=== PATIENT | male | born 1960 | race Caucasian/White ===

== ENCOUNTER → 2020-02-16 11:29 | Outpatient (CLI) | payer OTHER, SELFPAY ==
--- NOTE | ~2020-02-16 | XR_ITS ---
EXAMINATION: XR chest 2V DATE: 02/16/2020 12:00 INDICATION: Abnormal weight loss TECHNIQUE: PA and lateral views of the chest are obtained. COMPARISON: 11/22/2017 FINDINGS: The lungs are free of acute opacities. There is no pleural effusion or pneumothorax. The he art size is normal. Calcified left hilar lymph nodes are consistent with old granulomatous disease. T here are bridging osteophytes at multiple levels in the spine, consistent with diffuse idiopathic ske letal hyperostosis (DISH). IMPRESSION: 1. No acute cardiopulmonary abnormality. Reviewed, dictated and finalized at location B.
== END ==
PROVIDERS: PCP Family Medicine; Visit Provider Physician Assistant
DX: R63.4 Abnormal weight loss (principal)
CPT/HCPCS: 71046

== ENCOUNTER 2020-05-17 08:22 | Outpatient (CLI) | payer OTHER, SELFPAY ==
[2020-05-17 18:02] LABS: SARS-CoV-2 RNA PCR Negative
== END 2020-05-17 08:23 | disposition home or self-care (01) ==
LOC: ANHCOVIDDT 08:22
PROVIDERS: PCP Family Medicine; Visit Provider Internal Medicine Gastroenterology
DX: Z01.812 Encounter for preprocedural laboratory examination (principal); Z20.828 Contact with and (suspected) exposure to other viral communicable diseases
CPT/HCPCS: 87635; C9803; U0003

== ENCOUNTER 2020-05-20 01:19 | Day surgery (SDC) | payer OTHER, SELFPAY ==
[2020-05-09 15:01] VITALS: BMI 26.8
[2020-05-20 11:13] VITALS: BP 122/76; PULSE 79; RESP 14; TEMP 36.3; O2SAT 100
[2020-05-20] MEDS: LACTATED RINGERS 1,000 ML 150 ML IV CONT (11:22)
--- NOTE | 2020-05-20 11:30 | PM.IMHP ---
H&P: [facility] History of Present Illness Date/Time: 05/20/20 11:30 Chief complaint: neoplasm screening Narrative: Reason for visit is colonoscopy. This very pleasant gentleman seen in consultation request of the primary physician. Impression: Screening and surveillance colonoscopy. The patient has a history of hyperplastic colon polyps. Weight loss. This may be secondary to difficulty with his recent change in his dentures. Diabetes mellitus. Neuropathy. CAD status post stent placement. HTN. HLD. Anxiety. Recommendation: Colonoscopy. History: This very pleasant gentleman is here for screening and surveillance colonoscopy. He has history of hyperplastic colon polyps. He has had a marked weight loss of approximately 27 lb since July. He states that he has gotten some new dentures which are causing him some difficulty. Does have occasional constipation. He denies any gross hematochezia, melena acholic stools. Patient is here for colonoscopy. Physical examination: General: very pleasant patient in no acute distress. HEENT: Head was normocephalic sclerae is clear mouth without masses neck was supple. Heart: Rate rhythm regular without S3 or S4. Lungs: CTA. Abdomen: Soft with no guarding or rigidity. Bowel sounds were active. Neurologic: Cranial nerves 2 through 12 intact. No focal defects. No clonus. Musculoskeletal system: Revealed no joint tenderness or swelling no muscle atrophy. Extremities: Reveal no significant edema. Skin: Warm and dry with normal turgor. Mental status: intact. Patient is alert and oriented. Review of Systems Review of Systems: All systems reviewed & are unremarkable except as noted in HPI and below PMFSH Past Medical History Medical History (Updated 02/16/20 @ 15:09 by Maximiliano Calvo PA-C) Normal cardiac stress test (~2008) Family History Family History Father Acute myocardial infarction, Onset Age: 74 Malignant neoplasm of prostate, Onset Age: 74 Other Carcinoma of colon Social History Social History Years smoked: 10 Smoking status: Former smoker Tobacco type: cigarettes Alcohol intake: former Substance use: never Substance use type: does not use Spiritual care concerns: No Meds Home Medications and Allergies Home Medications Medication Instructions Recorded Confirmed Type atorvastatin 40 mg tablet 40 mg PO DAILY #90 tablet 06/05/19 05/09/20 Rx lisinopril 10 mg tablet 10 mg PO DAILY #90 tablet 08/10/19 05/09/20 Rx clopidogrel 75 mg tablet 75 mg PO DAILY 08/24/19 05/09/20 History metoprolol succinate 50 mg 50 mg PO DAILY 08/24/19 05/09/20 History tablet,extended release 24 hr metformin 1,000 mg tablet 1,000 mg PO BID #180 tablet 11/10/19 05/09/20 Rx empagliflozin 25 mg tablet 25 mg PO DAILY #90 tablet 12/19/19 05/09/20 Rx fluoxetine 20 mg capsule 20 mg PO DAILY #90 cap 01/15/20 05/09/20 Rx semaglutide 0.5 mg SUB-Q WEEKLY 90 Days #5.2 ml 03/26/20 05/09/20 Rx aspirin [Adult Low Dose Aspirin] 81 mg PO DAILY 05/09/20 05/09/20 History fluorouracil [Efudex] 1 applic TOPICAL BID PRN 05/09/20 05/09/20 History ginkgo biloba 60 mg PO DAILY 05/09/20 05/09/20 History melatonin 10 mg PO HS PRN 05/09/20 05/09/20 History csozysxluzsq-jnp-ooik-FA-vit K 1 tablet PO DAILY 05/09/20 05/09/20 History [Adults Multivitamin] vitamin B complex [Super B Complex] 1 cap PO DAILY 05/09/20 05/09/20 History Allergies Allergy/AdvReac Type Severity Reaction Status Date / Time naproxen Allergy Intermediate RASH Verified 05/20/20 11:11 Vital Signs Vital Signs - 24 hr 05/20/20 11:13 Temperature 36.3 C L Pulse Rate 79 Respiratory Rate 14 Blood Pressure 122/76 Pulse Oximetry 100
--- NOTE | 2020-05-20 11:37 | WPDANESEPPF ---
Anes - Initial Pre Proc Eval Procedure: Operation Date: 05/20/20 12:30 Proposed Procedures p Screening Colonoscopy - Pantera Richardson DO Date/Time: 05/20/20 11:37 Surgeon: Pantera Richardson DO Pre Op Diagnosis: neoplasm screening Patient Data Age: 60 Gender: M Height: 1.73 m Weight: 74.7 kg Last Vital Signs Temp 36.3 C L 05/20/20 11:13 Pulse 79 05/20/20 11:13 Resp 14 05/20/20 11:13 BP 122/76 05/20/20 11:13 Pulse Ox 100 05/20/20 11:13 Allergies Allergy/AdvReac Type Severity Reaction Status Date / Time naproxen Allergy Intermediate RASH Verified 05/20/20 11:11 Home Medications Medication Instructions Recorded Confirmed Type atorvastatin 40 mg tablet 40 mg PO DAILY #90 tablet 06/05/19 05/09/20 Rx lisinopril 10 mg tablet 10 mg PO DAILY #90 tablet 08/10/19 05/09/20 Rx clopidogrel 75 mg tablet 75 mg PO DAILY 08/24/19 05/09/20 History metoprolol succinate 50 mg 50 mg PO DAILY 08/24/19 05/09/20 History tablet,extended release 24 hr metformin 1,000 mg tablet 1,000 mg PO BID #180 tablet 11/10/19 05/09/20 Rx empagliflozin 25 mg tablet 25 mg PO DAILY #90 tablet 12/19/19 05/09/20 Rx fluoxetine 20 mg capsule 20 mg PO DAILY #90 cap 01/15/20 05/09/20 Rx semaglutide 0.5 mg SUB-Q WEEKLY 90 Days #5.2 ml 03/26/20 05/09/20 Rx aspirin [Adult Low Dose Aspirin] 81 mg PO DAILY 05/09/20 05/09/20 History fluorouracil [Efudex] 1 applic TOPICAL BID PRN 05/09/20 05/09/20 History ginkgo biloba 60 mg PO DAILY 05/09/20 05/09/20 History melatonin 10 mg PO HS PRN 05/09/20 05/09/20 History bfleevtxdpdv-zqt-nnzj-FA-vit K 1 tablet PO DAILY 05/09/20 05/09/20 History [Adults Multivitamin] vitamin B complex [Super B Complex] 1 cap PO DAILY 05/09/20 05/09/20 History Patient hx anesthesia problems: none Family hx anesthesia problems: none PMFSH Past Medical History Medical History (Updated 05/20/20 @ 11:39 by Shaji Low MD) Anxiety CAD (coronary artery disease) Depression Diabetes type 2, uncontrolled Essential (primary) hypertension Normal cardiac stress test (~2008) Obstructive sleep apnea cpap Surgical History Surgical History (Updated 05/20/20 @ 11:39 by Shaji Low MD) History of coronary artery stent placement 11/2017 Family History Family History Father Acute myocardial infarction, Onset Age: 74 Malignant neoplasm of prostate, Onset Age: 74 Other Carcinoma of colon Social History Social History Years smoked: 10 Smoking status: Former smoker Tobacco type: cigarettes Alcohol intake: former Substance use: never Substance use type: does not use Spiritual care concerns: No Anes - Eval Final PreProcedure Day of Procedure 05/20/20 11:37 Patient weight: normal Heart: regular rate and rhythm Lungs: clear to auscultation and normal air movement Airway: Mallampati scale class II Neurological: alert and oriented Last oral intake: >/= 8 hours ASA classification: III Emergent: no Anesthetic plan: proceed Anesthesia type and monitoring: general GIVS Informed Consent: The patient's anesthetic plan and its attendant risks and benefits were discussed with the patient/family/POA. Questions were solicited and answers provided to the satisfaction of the patient/family/POA.
[2020-05-20 11:44] LABS: Glucose Point of Care 144 (65-105)
[2020-05-20 12:47] VITALS: BP 91/60; PULSE 76; RESP 15; O2SAT 96
[2020-05-20 12:57] VITALS: BP 101/80; PULSE 79; RESP 32; O2SAT 100
[2020-05-20 13:07] VITALS: BP 100/59; PULSE 74; RESP 22; O2SAT 100
== END 2020-05-20 13:24 | disposition home or self-care (01) ==
PROVIDERS: PCP Family Medicine; Visit Provider Internal Medicine Gastroenterology
PROC: 0DJD8ZZ Inspection of Lower Intestinal Tract, Via Natural or Artificial Opening Endoscopic (ICD-10-PCS; CPT 45378; principal; 2020-05-20 12:30)
DX: Z12.11 Encounter for screening for malignant neoplasm of colon (principal); D12.2 Benign neoplasm of ascending colon; D12.3 Benign neoplasm of transverse colon; K64.8 Other hemorrhoids; R63.4 Abnormal weight loss; E11.9 Type 2 diabetes mellitus without complications; G62.9 Polyneuropathy, unspecified; I25.10 Atherosclerotic heart disease of native coronary artery without angina pectoris; I10 Essential (primary) hypertension; E78.5 Hyperlipidemia, unspecified; F41.9 Anxiety disorder, unspecified; G47.33 Obstructive sleep apnea (adult) (pediatric); Z99.89 Dependence on other enabling machines and devices; Z86.010 Personal history of colon polyps; Z87.891 Personal history of nicotine dependence; Z95.5 Presence of coronary angioplasty implant and graft; Z79.4 Long term (current) use of insulin
CPT/HCPCS: 45385; 45380; 88305; J2704; J7120

== ENCOUNTER 2020-05-28 07:52 | Outpatient (CLI) | payer OTHER, SELFPAY ==
--- NOTE | ~2020-05-28 | CT_ITS ---
EXAMINATION:CT chest wo con DATE: 05/28/2020 08:49 INDICATION: Abnormal weight loss. TECHNIQUE: Computed tomography (CT) of the chest was performed without intravenous contrast. Automate d exposure control and iterative reconstruction technique were employed. The dose-length product (DLP ) was 258.73 mGy-cm. COMPARISON: None. FINDINGS: There is mild scarring in paraspinal right lower lobe. There are mild peripheral groundglas s opacities and airspace opacities in basilar right lower lobe. There are mild groundglass opacities in peripheral left lower lobe. A calcified left lung nodule and calcified left hilar lymph nodes are consistent with old granulomatous disease. No pleural effusion. There are size is normal. There are c oronary artery calcifications. No pericardial effusion. Calcifications in the spleen are consistent w ith old granulomatous disease. There are bridging endplate osteophytes at multiple levels in the spin e, consistent with diffuse idiopathic skeletal hyperostosis (DISH). IMPRESSION: 1. Mild airspace and groundglass opacities in right lower lobe and mild groundglass opacities in left lower lobe, likely inflammation or infection (including COVID-19 pneumonia). Reviewed, dictated and finalized at location B. STANT HVAC MECHANIC IMPRESSION: 1. Mild airspace and groundglass opacities in right lower lobe and mild groundg lass opacities in left lower lobe, likely inflammation or infection (including COVID-19 pneumonia).
--- NOTE | ~2020-05-28 | CT_ITS ---
EXAMINATION: CT abdomen pelvis w con EXAM DATE: 05/28/2020 08:49 INDICATION: Abdominal distention, weight loss. TECHNIQUE: Spiral CT of the abdomen and pelvis was performed following intravenous injection of 100 m L Omnipaque 350. Axial, coronal and sagittal images were reviewed. The dose-length product (DLP) fo r this examination was 258.73 mGy-cm. The exposure was tailored according to patient size (auto mA e xposure control), and iterative reconstruction (ASIR) was used as additional dose reduction technique . There is no prior study for comparison. FINDINGS: The liver, spleen, adrenal glands and pancreas are unremarkable. Gallbladder is unremarkab le. No biliary obstruction. Portal and splenic veins are patent. There is a 1.7 cm right renal cyst . Kidneys enhance symmetrically. There is no hydronephrosis. The prostate is unremarkable. The bl adder is unremarkable. There is no retroperitoneal or pelvic lymphadenopathy. There is mild scatte red arteriosclerotic disease. The appendix is normal. The stomach and small bowel are unremarkable. There is moderate amount of c olonic stool. No free intraperitoneal gas. The heart is normal in size. There are no pericardial or pleural effusions. There are 2 small regions of ill-defined right lower lobe groundglass airspace disease, largest measu ring about 2 cm. There are 2 subcentimeter left lower lobe groundglass opacities. These are nonspecif ic, but probably pneumonitis, potentially from SARS-CoV-2. There are no osteoblastic or osteolytic le sions identified. Chronic L5 spondylolysis with grade 1 anterolisthesis L5 on S1. Grade 1 retrolisthe sis L4 on L5. IMPRESSION: 1. Several basilar groundglass opacities, possible COVID-19. Correlate with CT chest results. 2. No acute intra-abdominal findings. Reviewed, dictated and finalized at location A. ULTING SERVICES PROJECT MANAGER
== END 2020-05-28 07:53 | disposition home or self-care (01) ==
PROVIDERS: PCP Family Medicine; Referring Provider Internal Medicine Gastroenterology; Visit Provider Family Medicine
DX: R63.4 Abnormal weight loss (principal); R91.8 Other nonspecific abnormal finding of lung field
CPT/HCPCS: 71250; 74177; Q9967

== ENCOUNTER 2020-05-30 09:39 | Outpatient (NON) | payer OTHER, SELFPAY ==
[2020-05-31 00:45] LABS: SARS-CoV-2 RNA PCR Positive
== END 2020-05-30 09:40 ==
LOC: ANHCOVIDDT 09:40
PROVIDERS: PCP Family Medicine; Visit Provider Family Medicine
DX: U07.1 COVID-19 (principal)
CPT/HCPCS: 87635; C9803; U0003

== ENCOUNTER → 2020-07-08 11:39 | Outpatient (CLI) | payer OTHER, SELFPAY ==
--- NOTE | ~2020-07-08 | XR_ITS ---
EXAMINATION: XR lumbar spine 2-3V EXAM DATE: 07/08/2020 12:08 INDICATION: M54.9 - Dorsalgia, unspecified. TECHNIQUE: Lumber spine frontal, lateral, lateral L5-S1 projections for interpretation. Comparison is made to prior examination from 12/19/2018. FINDINGS: There is moderate disc disease at L5-S1 with about 7 mm anterolisthesis, suspicion of bila teral L5 spondylolysis. Mild to moderate disc disease at the other lumbar levels. There is 4 mm retro listhesis L4 on L5, 3 mm retrolisthesis L3 on L4. Mild to moderate lumbar facet arthropathy. Small en dplate osteophytes. Paraspinal soft tissue is unremarkable. Sacrum, sacroiliac joints, sacral arcuate lines are intact. IMPRESSION: 1. Grade 2 anterolisthesis L5 on S1, with probable bilateral L5 spondylolysis. 2. Moderate L5-S1 disc disease. 3. Lesser spondylosis other levels. Reviewed, dictated and finalized at location B. 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
--- NOTE | ~2020-07-08 | XR_ITS ---
EXAMINATION: XR thoracic spine 3V EXAM DATE: 07/08/2020 12:08 INDICATION: Mid and low back pain.. TECHNIQUE: Frontal and lateral projections of the thoracic spine as well as lateral swimmers projecti on of the upper thoracic spine for interpretation. There is no prior study for comparison. FINDINGS: Moderate-sized bridging endplate osteophytes throughout the thoracic spine, diffuse idiopat hic skeletal hyperostosis. Mild mid and lower thoracic disc disease. Left hilar granulomata. Mild tho racic facet arthropathy. IMPRESSION: 1. Thoracic diffuse idiopathic skeletal hyperostosis. 2. Mild thoracic spondylosis. Reviewed, dictated and finalized at location B. AIGN ASSISTANT
== END ==
PROVIDERS: PCP Family Medicine; Visit Provider Physician Assistant
DX: M47.894 Other spondylosis, thoracic region (principal); M51.37 Other intervertebral disc degeneration, lumbosacral region; M47.896 Other spondylosis, lumbar region
CPT/HCPCS: 72072; 72100

== ENCOUNTER 2021-11-06 16:37 | Outpatient (CLI) | payer OTHER, SELFPAY ==
[2021-11-06 17:17] LABS: Anion Gap 7 mmol/L (8-16); Blood Urea Nitrogen 16 mg/dL (9-20); Calcium 8.5 mg/dL (8.4-10.2); Carbon Dioxide 29 mmol/L (22-30); Chloride 101 mmol/L (98-107); Estimated Glomerular Filt Rate > 60; Glucose 262 mg/dL (65-110); Potassium 3.9 mmol/L (3.4-5.0); Sodium 137 mmol/L (137-145)
== END 2021-11-06 16:38 | disposition home or self-care (01) ==
LOC: ANHLAB 16:39
PROVIDERS: PCP Family Medicine; Visit Provider Physician Assistant
DX: E87.5 Hyperkalemia (principal)
CPT/HCPCS: 36415; 80048

== ENCOUNTER → 2022-11-12 15:23 | Outpatient (CLI) | payer OTHER, SELFPAY ==
--- NOTE | ~2022-11-12 | XR_ITS ---
EXAMINATION: XR shoulder RT min 2V DATE: 11/12/2022 15:39 INDICATION: Right shoulder pain. TECHNIQUE: 4 views of right shoulder were obtained. COMPARISON: None. FINDINGS: Bone alignment is normal. No fracture. There is mild osteoarthritis of glenohumeral joint a nd acromioclavicular joint. IMPRESSION: 1. Mild polyarticular osteoarthritis. Reviewed, dictated and finalized at location E.
== END ==
PROVIDERS: PCP Family Medicine; Visit Provider Family Medicine
DX: E11.42 Type 2 diabetes mellitus with diabetic polyneuropathy (principal); M19.011 Primary osteoarthritis, right shoulder
CPT/HCPCS: 73030

== ENCOUNTER 2023-01-05 10:05 | Outpatient (CLI) | payer OTHER, SELFPAY ==
--- NOTE | ~2023-01-05 | MR_ITS ---
MRI of the right shoulder Technique: Axial proton-density fat-sat images, coronal proton density fat-sat and T2 fat-sat images, and sagittal T1-weighted and T2 fat-sat images were acquired. Clinical History: Pain Findings: There is moderate to advanced AC joint degenerative change. Coracoclavicular, coracoacromia l, and coracohumeral ligaments are intact. There is focal high-grade interstitial tearing at the distal, anterior supraspinatus tendon insertion , involving approximately 80% of the total tendon thickness. Area of tearing measures approximately 0 .9 x 0.8 cm in extent. Infraspinatus tendon is intact, without partial or full-thickness tear. Subsca pularis tendon is intact, with mild tendinosis. Tendon of the long head of the biceps is intact. No labral tear identified. Inferior glenohumeral ligament is intact. There are enthesopathic changes at the humeral head at the rotator cuff insertion. No degenerative change at the glenohumeral joint. No significant joint effusi on. There is mild fluid distention of the subacromial/subdeltoid bursa. Probable loose body present i n the subscapularis recess of the joint, measuring 1.0 x 0.4 cm (series 6 image 16, series 4 image 5) . IMPRESSION: High-grade interstitial tear of the distal, anterior supraspinatus tendon, as detailed above. Probable 1.0 x 0.4 cm loose body in the subscapularis recess of the joint. Mild subacromial/subdeltoid bursitis. Reviewed, dictated and finalized at location . IMPRESSION: High-grade interstitial tear of the distal, anterior supraspinatus tendon, as d etailed above. Probable 1.0 x 0.4 cm loose body in the subscapularis recess of the joint. Mild subacromial/subdeltoid bursitis.
== END 2023-01-05 10:06 ==
LOC: GOSHIMG 10:06
PROVIDERS: PCP Family Medicine; Visit Provider Family Medicine
DX: E11.618 Type 2 diabetes mellitus with other diabetic arthropathy (principal); M75.51 Bursitis of right shoulder; M75.121 Complete rotator cuff tear or rupture of right shoulder, not specified as traumatic
CPT/HCPCS: 73221

== ENCOUNTER 2023-05-07 12:20 | Emergency (ER) | payer MEDICARE, SELFPAY ==
--- NOTE | ~2023-05-07 | XR_ITS ---
XR abdomen/kub 1V DATE: 05/07/2023 14:11 INDICATION: Hematuria. Fever. TECHNIQUE: 2 supine AP views COMPARISON: None FINDINGS: The psoas shadows are intact. No visceromegaly or significant abnormal calcification is det ected. No evidence of bowel obstruction. There is degenerative spurring of the thoracic and lumbar spine. IMPRESSION: Nonspecific abdomen Reviewed, dictated and finalized at Location A. Reviewed, dictated and finalized at location B. IMPRESSION: Nonspecific abdomen
[2023-05-07 13:37] LABS: Glucose Point of Care 150 mg/dl (65-105)
[2023-05-07 13:57] VITALS: BP 128/68; PULSE 89; RESP 16; TEMP 36.3; O2SAT 99
--- NOTE | 2023-05-07 13:59 | ED.GENADULT ---
HPI - General Adult General Chief complaint: Upper Respiratory Infection Stated complaint: sore throat,fever,body aches,painful urination Time Seen by Provider: 05/07/23 13:47 Source: patient, family () and RN notes reviewed Mode of arrival: ambulatory Limitations: no limitations History of Present Illness HPI narrative: Patient presents today complaining of a 1.5 day history of dysuria, body aches, low back pain, fever up to 101.4, abdominal pain, urinary frequency with less urine output, and nausea. He has been taking Tylenol with some relief of symptoms. Related Data Home Medications Medication Instructions Recorded Confirmed aspirin 81 mg tablet 81 mg PO DAILY 05/09/20 04/22/23 fluorouracil 5 % topical cream 1 applic topical BID PRN Skin 05/09/20 04/22/23 (Efudex) Irritation multivit with minerals-iron 18 1 tablet PO DAILY 05/09/20 04/22/23 mg-folic ac 400 mcg-vit K 25 mcg tablet (Adults Multivitamin) vitamin B complex 1 cap PO DAILY 05/09/20 04/22/23 gabapentin 300 mg capsule 600 mg PO QHS 11/10/22 04/22/23 Allergies Allergy/AdvReac Type Severity Reaction Status Date / Time naproxen Allergy Intermediate RASH Verified 05/07/23 12:53 Review of Systems Review of Systems: CONSTITUTIONAL: + body aches, fever EYES: Denies visual changes, redness, or discharge. ENT: Denies rhinorrhea, congestion, sore throat, or otalgia. CARDIOVASCULAR: Denies chest pain, palpitations, or edema. RESPIRATORY: Denies cough or dyspnea. GASTROINTESTINAL: Denies vomiting, or diarrhea.+ abdominal pain, nausea GENITOURINARY: + frequency, dysuria, decreased urine output SKIN: Denies rash, itching, or wounds. MUSCULOSKELETAL: Denies joint pain, or myalgia.+ low back pain NEUROLOGIC: Denies headache, numbness, tingling, or weakness. PSYCH: Denies depression or anxiety. [facility] Past Medical History Medical History Abnormal weight loss Actinic keratosis Anxiety Back pain CAD (coronary artery disease) Depression Diabetes type 2, uncontrolled Essential (primary) hypertension Hyperkalemia Normal cardiac stress test (~2008) Obstructive sleep apnea cpap Skin lesion of face Surgical History Surgical History History of coronary artery stent placement 11/2017 Family History Family History Father Acute myocardial infarction, Onset Age: 74 Malignant neoplasm of prostate, Onset Age: 74 Other Carcinoma of colon Social History Social History Smoking packs per day: 0.5 Smoking cigarettes per day: 10.0 Years smoked: 10 Smoking pack-years: 5.00 Smoking status: Current every day smoker Tobacco type: cigarettes Alcohol intake: former Substance use: never Substance use type: does not use Lack of Transportation: No Lack of Food: Never True Current Housing: I Have Housing Concerned About Future Housing: No Difficulty Paying Gas/Electric Bills: No Difficulty Paying for Meds: No Currently Unemployed: No Education: High School Diploma/GED Difficulty w/ Childcare or Family Care: No Spiritual care concerns: No Comments At time of signature, I have reviewed and agree with nursing past medical, surgical, social and family history unless otherwise noted. Please see nursing chart for further information. There is no relevant family history pertinent to the presenting complaint Exam Narrative: GENERAL: Mildly ill-appearing, well-nourished, and in no acute distress. HEAD: Normocephalic, atraumatic. EYES: EOMI. No redness or drainage. Conjunctivae normal. ENT: Mucous membranes pink and moist. Nares clear. No rhinorrhea. TMs normal bilaterally. Throat normal. Uvula midline. NECK: Normal AROM. Supple. No lymphadenopathy. CHEST: No r
== END 2023-05-07 15:02 | disposition left against medical advice (07) ==
PROVIDERS: Emergency Provider Nurse Practitioner; PCP Family Medicine
DX: R30.0 Dysuria (principal); R31.9 Hematuria, unspecified; F17.210 Nicotine dependence, cigarettes, uncomplicated; I25.10 Atherosclerotic heart disease of native coronary artery without angina pectoris; E11.9 Type 2 diabetes mellitus without complications; I10 Essential (primary) hypertension; G47.33 Obstructive sleep apnea (adult) (pediatric); Z95.5 Presence of coronary angioplasty implant and graft
CPT/HCPCS: 74018; 81003; 82948; 99213; G0463

== ENCOUNTER 2023-05-21 11:27 | Outpatient (CLI) | payer MEDICARE, SELFPAY ==
[2023-05-21 16:21] LABS: Kit Draw Collected
== END 2023-05-21 11:28 | disposition home or self-care (01) ==
PROVIDERS: PCP Family Medicine; Visit Provider Family Medicine
DX: E11.42 Type 2 diabetes mellitus with diabetic polyneuropathy (principal)
CPT/HCPCS: 36415

== ENCOUNTER 2023-10-14 10:26 | Outpatient (CLI) | payer MEDICARE, SELFPAY ==
--- NOTE | ~2023-10-14 | CT_ITS ---
EXAMINATION: CT lung screening DATE: 10/14/2023 10:38 INDICATION: Nicotine dependence TECHNIQUE: Computed tomography (CT) of the head was performed without intravenous contrast. The dose- length product was 188.53 mGy-cm. Automated exposure control and iterative reconstruction technique w ere employed. COMPARISON: CT dated 05/28/2020 FINDINGS: No significant pleural or pericardial effusion. There is calcified left hilar lymph nodes, consistent with chronic granulomatous disease. There are calcified granulomas of the left lower lobe and spleen. No endobronchial lesions. There is a 2 mm right middle lobe nodule. Moderate thoracic spo ndylosis. No acute osseous abnormality. IMPRESSION: 1. Lung-RADS category 2: Benign appearance or behavior. Continue annual screening with noncontrast lo w-dose chest CT in 12 months. Reviewed, dictated and finalized at location L. IMPRESSION: 1. Lung-RADS category 2: Benign appearance or behavior. Continue annual screeni ng with noncontrast low-dose chest CT in 12 months.
== END 2023-10-14 10:27 ==
LOC: MICIMG 10:27
PROVIDERS: PCP Family Medicine; Visit Provider Nurse Practitioner Family
DX: Z12.2 Encounter for screening for malignant neoplasm of respiratory organs (principal); F17.210 Nicotine dependence, cigarettes, uncomplicated
CPT/HCPCS: 71271

== ENCOUNTER 2024-06-13 11:14 | Emergency (ER) | payer MEDICARE, SELFPAY ==
[2024-06-13] VITALS (22 sets, daily range): BP systolic 103–147; BP diastolic 67–86; PULSE 68–84; RESP 16–18; TEMP 36.4–37.1; O2SAT 95–100
--- NOTE | ~2024-06-13 | CT_ITS ---
EXAMINATION: CT abdomen pelvis w con DATE: 06/13/2024 14:10 INDICATION: Localized abdominal pain TECHNIQUE: Computed tomography (CT) of the abdomen and pelvis was performed with 100 mL Omnipaque-350 intravenous contrast. Automated exposure control and iterative reconstruction technique were employe d. The dose-length product was 308.46 mGy-cm. COMPARISON: 05/28/2020 FINDINGS: Calcified nodule at the dependent left lower lobe along with a few splenic calcifications consistent with old granulomatous disease. Heart size is normal. Atherosclerotic coronary artery calcifications. No pericardial or pleural effusion. Mild focal hepatic steatosis at the ligamentum teres. Gallbladde r, pancreas, bilateral adrenal glands and left kidney are normal. 2 cm right renal cyst. There is flu id throughout the large and small bowel consistent with nonspecific diarrhea. No obstruction or abnor mal bowel wall thickening. There are a couple intraluminal small linear metallic densities at the hep atic flexure of the colon potentially surgical clips or ingested material. Decompressed bladder is un remarkable. Prostatomegaly. No free intraperitoneal gas or fluid. No pathologically enlarged abdomina l or pelvic lymphadenopathy. Severe lower lumbar spondylosis. IMPRESSION: 1. Diffuse fluid throughout the large and small bowel consistent with nonspecific diarrhea. Correlate for gastroenteritis. 2. Curvilinear metallic densities at the splenic flexure of the colon which could represent surgical clips or ingested material. Correlate with clinical history. Reviewed, dictated and finalized at location A. NESS SUPPORT ADMINISTRATOR IMPRESSION: 1. Diffuse fluid throughout the large and small bowel consistent with nonspecif ic diarrhea. Correlate for gastroenteritis. 2. Curvilinear metallic densities at the splenic flexure of the colon which cou ld represent surgical clips or ingested material. Correlate with clinical histo ry.
--- NOTE | 2024-06-13 12:27 | ECG_ITS ---
Test Date: 2024-06-13 12:36:05 Measurements Intervals [place] Rate: 96 P: 79 WV: 141 QRS: 2 QRSD: 101 T: 63 QT: 335 QTc: 423 Interpretive Statements SINUS RHYTHM WITH OCCASIONAL SUPRAVENTRICULAR PREMATURE COMPLEXES BASELINE ARTIFACT- I, II, III, AVL, V1, V3-V6 BORDERLINE ECG No previous ECG available for comparison Electronically Signed On 06-13-2024 12:51:39 IT SYSTEMS ENGINEER by Ricardo Rodriguez D.O.
--- NOTE | 2024-06-13 12:32 | ED.ABDPAIN ---
HPI - Abdominal Pain General Chief Complaint: Recheck/Abnormal Lab/Rx <Liliana Turcios APRN - Last Filed: 06/13/24 12:37> Stated Complaint: irregular hr and low bp <Liliana Turcios APRN - Last Filed: 06/13/24 12:37> Time Seen by Provider: 06/13/24 12:20 <Liliana Turcios APRN - Last Filed: 06/13/24 12:37> Focused HPI: Patient is male who presents to the ER with complaints of abdominal pain. He reports he has a history of diabetes and was hospitalized 2 weeks ago at [facility] because he was in DKA. Patient reports his hospital visit was 5 days long. He reports his abdominal pain continues along with diarrhea. Patient reports at [facility] they did stool cultures that were negative. He reports that his primary care provider adjusted his diabetes medications so he is only on Lantus at bedtime now. Patient reports in the ER at [facility] he was in AFib but then corrected himself out of it during his hospital stay. He feels as though his heart rate is still irregular. Patient went in to see his primary care provider today who endorse that his heart rate is irregular in his blood pressure is low so she advised him to come into the ER for evaluation. He denies shortness of breath, fevers, or back pain. Pt reports his blood sugars have been ranging between 200-300s. GENERAL: Well-appearing, well-nourished, and in no acute distress. HEAD: Normocephalic, atraumatic. CHEST: Clear to auscultation. ?No respiratory distress. HEART: Regular rate and rhythm.? NEURO: ?Alert and oriented x3. Patient screened in triage and initial orders placed.? ?Additional care and disposition to be based upon?diagnostic testing and treatment. <Liliana Turcios APRN - Last Filed: 06/13/24 12:37> History of Present Illness HPI narrative: Agree with HPI. Completed Flagyl yesterday. <Cesario Rivera MD - Last Filed: 06/13/24 22:07> Related Data Home Medications: Home Medications Medication Instructions Recorded Confirmed aspirin 81 mg tablet 81 mg PO DAILY 05/09/20 03/22/24 fluorouracil 5 % topical cream 1 applic topical BID PRN Skin 05/09/20 03/22/24 (Efudex) Irritation multivit with minerals-iron 18 1 tablet PO DAILY 05/09/20 03/22/24 mg-folic ac 400 mcg-vit K 25 mcg tablet (Adults Multivitamin) vitamin B complex 1 cap PO DAILY 05/09/20 03/22/24 gabapentin 300 mg capsule 600 mg PO QHS 11/10/22 03/22/24 Lactobacillus acidophilus 20 PO 06/13/24 billion cell capsule (Florajen Acidophilus) cholestyramine (with sugar) 4 gram ea PO 06/13/24 powder for susp in a packet insulin glargine 100 unit/mL (3 unit subcut 06/13/24 mL) subcutaneous pen (Lantus Solostar U-100 Insulin) loperamide 2 mg capsule mg PO 06/13/24 pantoprazole 40 mg tablet,delayed mg PO 06/13/24 release pen needle, diabetic 32 gauge x #100 ea 06/13/2407/22 (BD Ultra-Fine Micro Pen Needle) <Liliana Turcios, MANAGER CANCER - Last Filed: 06/13/24 12:37> Allergies/Adverse Reactions: Allergies Allergy/AdvReac Type Severity Reaction Status Date / Time naproxen Allergy Intermediate RASH Verified 06/13/24 10:14 <Liliana Turcios APRN - Last Filed: 06/13/24 12:37> Review of Systems Review of Systems: All systems reviewed & are unremarkable except as noted in HPI and below <Cesario Rivera MD - Last Filed: 06/13/24 22:07> Constitutional: Constitutional: Denies chills, Reports fatigue and Denies fever(s) <Cesario Rivera MD - Last Filed: 06/13/24 22:07> ENT: Reports system reviewed and no additional complaints, except as documented <Cesario Rivera MD - Last Filed: 06/13/24 22:07> Cardiovascular: Cardiovascular: Reports no additional cardiovascular complaints <Cesario Rivera MD - Last Filed: 06/13/24 22:07> Respiratory: Respiratory: Reports no additional respiratory complaints <Cesario Rivera MD - Last Filed: 06/13/24 22:07> Gastrointestinal: Gastrointestinal: Denies abdominal pain, Reports diarrhea, Denies nausea and Denies vomiting <Cesario Rivera MD - Last Filed: 06/13/24 22:07> PMFSH Past Medical History Medical History: Medical History Abnormal weight loss Actinic keratosis Anxiety Back pain CAD (coronary artery disease) Complete tear of right rotator cuff Depression Dermatitis Essential (primary) hypertension Hand pain Hyperkalemia Low back strain Normal cardiac stress test (~2008) Obstructive sleep apnea cpap Prostatitis Rotator cuff tear Skin lesion of face <Liliana Turcios, MANAGER CANCER - Last Filed: 06/13/24 12:37> Surgical History Surgical History: Surgical History History of coronary artery stent placement 11/2017 <Liliana Turcios APRN - Last Filed: 06/13/24 12:37> Family History Family History: Family History Father Acute myocardial infarction, Onset Age: 74 Malignant neoplasm of prostate, Onset Age: 74 Other Carcinoma of colon <Liliana Turcios APRN - Last Filed: 06/13/24 12:37> Social History Social History: Social History Smoking packs per day: 0.75 Smoking cigarettes per day: 15.0 Years smoked: 10 Smoking pack-years: 7.50 Smoking status: Current every day smoker Tobacco type: cigarettes Alcohol intake: former Substance use: never Substance use type: does not use Do You Feel Safe in your Home?: Yes Lack of Transportation: No Lack of Food: Never True Current Housing: I Have Housing Concerned About Future Housing: No Difficulty Paying Gas/Electric Bills: No Difficulty Paying for Meds: No Currently Unemployed: No Education: High School Diploma/GED Difficulty w/ Childcare or Family Care: No Spiritual care concerns: No <Liliana Turcios APRN - Last Filed: 06/13/24 12:37> Exam Narrative: GENERAL: Well-appearing, well-nourished, and in no acute distress. HEAD: Normocephalic, atraumatic. ENT: Mucous membranes moist. NECK: Supple. CHEST: Clear to auscultation. No respiratory distress. HEART: Regular rate and rhythm. Normal peripheral pulses. ABDOMEN: Soft, nontender, nondistended. EXTREMITIES: Normal range of motion. No edema. SKIN: Warm, dry, no rash. NEURO: Alert and oriented x3. PSYCH: Normal mood and affect. <Cesario Rivera MD - Last Filed: 06/13/24 22:07> Course Course Emergency Course: Patient resting comfortably. Hydrated. CT with gastroenteritis but significant white blood cell count. Route on C diff testing. GI biopsies from outside hospital show a incentive pleural gastroenteritis. Patient requests to stay here. 1635: Patient's daughter is here. Updated her on labs at her request. She has spoke with her family and they would now like to try to go to a just a [facility] for continuity of care which is a reasonable request. 1656: NO GI at [facility]. E untill 06/15, [facility] full and with waitlist. Patient delines to go to [facility] and perfers to stay here. NO waitlist placement. <Cesario Rivera MD - Last Filed: 06/13/24 22:07> Vital Signs Vital signs: Vital Signs Temperature 97.6 F 06/13/24 11:17 Pulse Rate 84 06/13/24 11:17 Respiratory Rate 16 06/13/24 11:17 Blood Pressure 104/69 06/13/24 11:17 Pulse Oximetry 98 06/13/24 11:17 Temperature 98.7 F 06/13/24 17:15 Pulse Rate 68 06/13/24 17:15 Respiratory Rate 18 06/13/24 19:43 Blood Pressure 112/67 06/13/24 19:43 Pulse Oximetry 98 06/13/24 19:43 <Liliana Turcios, LORENE - Last Filed: 06/13/24 12:37> Vital Signs Temperature 97.6 F 06/13/24 11:17 Pulse Rate 84 06/13/24 11:17 Respiratory Rate 16 06/13/24 11:17 Blood Pressure 104/69 06/13/24 11:17 Pulse Oximetry 98 06/13/24 11:17 Temperature 98.7 F 06/13/24 17:15 Pulse Rate 68 06/13/24 17:15 Respiratory Rate 18 06/13/24 19:43 Blood Pressure 112/67 06/13/24 19:43 Pulse Oximetry 98 06/13/24 19:43 <Cesario Rivera MD - Last Filed: 06/13/24 22:07> MDM - Abdominal Pain Lab Data Result diagrams: 06/13/24 12:44 06/13/24 12:44 <Liliana Turcios APRN - Last Filed: 06/13/24 12:37> Labs: Lab Results 06/13/24 06/13/24 06/13/24 Range/Units 12:44 12:44 14:03 WBC 32.6 H (4.5-10.0) K/mm3 RBC 6.17 (4.6-6.20) M/mm3 Hgb 18.6 H (14.0-18.0) g/dL Hct 53.6 H (42.0-52.0) % MCV 86.9 (80-100) fl MCH 30.1 (26-34) pg MCHC 34.7 (32-36) g/dl RDW 13.6 (11.5-14.5) % Plt Count 287 (150-375) k/mm3 MPV 8.8 (7.4-10.4) fl Immature Gran % (Auto) 1.6 H (0-0.5) % Neut % (Auto) 52.3 (45.5-73.1) % Lymph % (Auto) 13.1 L (18.3-44.2) % [place] % (Auto) 5.1 (2.6-8.5) % Eos % (Auto) 27.3 H (0-4.4) % Baso % (Auto) 0.6 (0.2-1.2) % Lymph # (Auto) 4.26 H (0.9-3.2) K/mm3 [place] # (Auto) 1.7 H (0.1-0.6) K/mm3 Eos # (Auto) 8.9 H (0-0.3) K/mm3 Baso # (Auto) 0.2 H (0.0-0.1) K/mm3 Abs Immat Gran (auto) 0.52 H (0.00-0.031) K/mm3 Absolute Neuts (auto) 17.1 H (1.3-6.7) K/mm3 Absolute Nucleated RBC 0.000 (0.0-0.012) K/mm3 Nucleated RBC % 0.0 (0.0-0.2) % ESR 1 Cancelled (0-20) mm/hr PT 13.5 (11.1-14.7) Seconds INR 1.0 APTT 22.3 (22.3-36.8) Seconds Sodium 135 L (137-145) mmol/L Potassium 4.0 (3.4-5.0) mmol/L Chloride 103 (98-107) mmol/L Carbon Dioxide 21 L (22-30) mmol/L Anion Gap 11 (4-12) mmol/L BUN 16 (9-20) mg/dL Creatinine 0.90 (0.7-1.3) mg/dL Estim Creat Clear Calc 66 ml/min Estimated GFR > 60 (59 - ) Glucose 267 H (65-110) mg/dL Calcium 8.7 (8.4-10.2) mg/dL Total Bilirubin 0.7 (0.2-1.3) mg/dL AST 27 (17-59) U/L ALT 29 (6-50) U/L Alkaline Phosphatase 90 (38-126) U/L Troponin I < 0.012 (0.000-0.034) ng/mL C-Reactive Protein < 0.5 (<1.0) mg/dL Total Protein 7.0 (6.3-8.2) g/dL Albumin 4.0 (3.5-5.1) g/dL Lipase 34 (23-300) U/L Procalcitonin 0.1 ng/mL TSH (Reflex) 1.540 (0.465-4.68) uIU/mL Urine Color Dark yellow (Yellow) Urine Appearance Cloudy H (Clear) Urine pH 5.5 (5.0-9.0) Ur Specific [place] 1.032 (1.001-1.035) Urine Protein 2+ H (Negative) mg/dL Urine Glucose (UA) 2+ H (Negative) mg/dL Urine Ketones Trace H (Negative) mg/dL Ur Blood (Man) Negative (Negative) Urine Nitrate Negative (Negative) Urine Bilirubin 2+ H (Negative) Urine Urobilinogen 1.0 (<2.0) mg/dL Add Ur Microanalysis Reviewed Leukocyte Esterase Rfl Trace H (Negative) MILTON/UL Urine RBC 0-2 (0-2) /hpf Urine WBC 0-5 (0-3) /hpf Ur Squamous Epith Cells Few (Few) /hpf Urine Bacteria None seen /hpf Urine Casts >20 Hyaline Casts Present (None) /lpf Urine Mucus Present /lpf Influenza A (RT-PCR) Negative (Negative) Influenza B (RT-PCR) Negative (Negative) RSV (RT-PCR) Negative (Negative) SARS-CoV-2 RNA (RT-PCR) Negative (Negative) <Liliana Turcios, MANAGER CANCER - Last Filed: 06/13/24 12:37> Lab Results 06/13/24 06/13/24 06/13/24 Range/Units 12:44 12:44 14:03 WBC 32.6 H (4.5-10.0) K/mm3 RBC 6.17 (4.6-6.20) M/mm3 Hgb 18.6 H (14.0-18.0) g/dL Hct 53.6 H (42.0-52.0) % MCV 86.9 (80-100) fl MCH 30.1 (26-34) pg MCHC 34.7 (32-36) g/dl RDW 13.6 (11.5-14.5) % Plt Count 287 (150-375) k/mm3 MPV 8.8 (7.4-10.4) fl Immature Gran % (Auto) 1.6 H (0-0.5) % Neut % (Auto) 52.3 (45.5-73.1) % Lymph % (Auto) 13.1 L (18.3-44.2) % [place] % (Auto) 5.1 (2.6-8.5) % Eos % (Auto) 27.3 H (0-4.4) % Baso % (Auto) 0.6 (0.2-1.2) % Lymph # (Auto) 4.26 H (0.9-3.2) K/mm3 [place] # (Auto) 1.7 H (0.1-0.6) K/mm3 Eos # (Auto) 8.9 H (0-0.3) K/mm3 Baso # (Auto) 0.2 H (0.0-0.1) K/mm3 Abs Immat Gran (auto) 0.52 H (0.00-0.031) K/mm3 Absolute Neuts (auto) 17.1 H (1.3-6.7) K/mm3 Absolute Nucleated RBC 0.000 (0.0-0.012) K/mm3 Nucleated RBC % 0.0 (0.0-0.2) % ESR 1 Cancelled (0-20) mm/hr PT 13.5 (11.1-14.7) Seconds INR 1.0 APTT 22.3 (22.3-36.8) Seconds Sodium 135 L (137-145) mmol/L Potassium 4.0 (3.4-5.0) mmol/L Chloride 103 (98-107) mmol/L Carbon Dioxide 21 L (22-30) mmol/L Anion Gap 11 (4-12) mmol/L BUN 16 (9-20) mg/dL Creatinine 0.90 (0.7-1.3) mg/dL Estim Creat Clear Calc 66 ml/min Estimated GFR > 60 (59 - ) Glucose 267 H (65-110) mg/dL Calcium 8.7 (8.4-10.2) mg/dL Total Bilirubin 0.7 (0.2-1.3) mg/dL AST 27 (17-59) U/L ALT 29 (6-50) U/L Alkaline Phosphatase 90 (38-126) U/L Troponin I < 0.012 (0.000-0.034) ng/mL C-Reactive Protein < 0.5 (<1.0) mg/dL Total Protein 7.0 (6.3-8.2) g/dL Albumin 4.0 (3.5-5.1) g/dL Lipase 34 (23-300) U/L Procalcitonin 0.1 ng/mL TSH (Reflex) 1.540 (0.465-4.68) uIU/mL Urine Color Dark yellow (Yellow) Urine Appearance Cloudy H (Clear) Urine pH 5.5 (5.0-9.0) Ur Specific [place] 1.032 (1.001-1.035) Urine Protein 2+ H (Negative) mg/dL Urine Glucose (UA) 2+ H (Negative) mg/dL Urine Ketones Trace H (Negative) mg/dL Ur Blood (Man) Negative (Negative) Urine Nitrate Negative (Negative) Urine Bilirubin 2+ H (Negative) Urine Urobilinogen 1.0 (<2.0) mg/dL Add Ur Microanalysis Reviewed Leukocyte Esterase Rfl Trace H (Negative) MILTON/UL Urine RBC 0-2 (0-2) /hpf Urine WBC 0-5 (0-3) /hpf Ur Squamous Epith Cells Few (Few) /hpf Urine Bacteria None seen /hpf Urine Casts >20 Hyaline Casts Present (None) /lpf Urine Mucus Present /lpf Influenza A (RT-PCR) Negative (Negative) Influenza B (RT-PCR) Negative (Negative) RSV (RT-PCR) Negative (Negative) SARS-CoV-2 RNA (RT-PCR) Negative (Negative) <Cesario Rivera MD - Last Filed: 06/13/24 22:07> Imaging Data Radiologist's impression: ITS Impressions Abdomen/Pelvis CT 06/13/24 14:29 IMPRESSION: 1. Diffuse fluid throughout the large and small bowel consistent with nonspecific diarrhea. Correlate for gastroenteritis. 2. Curvilinear metallic densities at the splenic flexure of the colon which could represent surgical clips or ingested material. Correlate with clinical history. <Liliana Turcios APRN - Last Filed: 06/13/24 12:37> ITS Impressions Abdomen/Pelvis CT 06/13/24 14:29 IMPRESSION: 1. Diffuse fluid throughout the large and small bowel consistent with nonspecific diarrhea. Correlate for gastroenteritis. 2. Curvilinear metallic densities at the splenic flexure of the colon which could represent surgical clips or ingested material. Correlate with clinical history. <Cesario Rivera MD - Last Filed: 06/13/24 22:07> Discharge Plan Discharge Clinical Impression: Diarrhea, Dehydration <Liliana Turcios APRN - Last Filed: 06/13/24 12:37> Patient Disposition: Left Against Medical Advice <Liliana Turcios APRN - Last Filed: 06/13/24 12:37> Condition: Stable <Liliana Turcios APRN - Last Filed: 06/13/24 12:37> Prescriptions: No Action triamcinolone acetonide 0.1 % cream 1 applic topical BID Qty: 80 2RF (DME) Dexcom G6 Transmitter Device See Rx Instructions .Route Qty: 1 0RF Rx Instructions: As directed (DME) Dexcom G6 Shop Steward Misc See Rx Instructions .Route Qty: 1 0RF Rx Instructions: As directed (DME) Dexcom G6 Sensor Device See Rx Instructions .Route Qty: 3 0RF Rx Instructions: As directed gabapentin 300 mg capsule 600 mg PO QHS Florajen Acidophilus 20 billion cell capsule PO cholestyramine (with sugar) 4 gram powder in packet PO insulin glargine [Lantus Solostar U-100 Insulin] 100 unit/mL (3 mL) insulin pen subcut (DME) pen needle, diabetic [BD Ultra-Fine Micro Pen Needle] 32 gauge x 1/4 needle See Rx Instructions .ROUTE .MEDSUPPLY Qty: 100 Rx Instructions: As directed pantoprazole 40 mg tablet,delayed release (DR/EC) PO loperamide 2 mg capsule PO Adult Low Dose Aspirin 81 mg Tablet 81 mg PO DAILY vitamin B complex [Super B Complex] Capsule 1 cap PO DAILY Adults Multivitamin 18 mg iron-400 mcg-25 mcg Tablet 1 tablet PO DAILY fluorouracil [Efudex] 5 % cream 1 applic TOPICAL BID PRN (Reason: Skin Irritation) Rx Instructions: apply sufficient amount to cover all lesions (DME) Blood Glucose Test Strip See Rx Instructions .Route Qty: 200 3RF Rx Instructions: twice daily metformin 1,000 mg tablet See Rx Instructions .ROUTE .COMPLEX Qty: 180 3RF Dose Instruction: TAKE 1 TABLET BY MOUTH TWICE A DAY Rx Instructions: TAKE 1 TABLET BY MOUTH TWICE A DAY bupropion HCl 150 mg tablet extended release 24 hr 150 mg PO QAM Qty: 90 2RF metoprolol succinate 50 mg tablet extended release 24 hr See Rx Instructions .ROUTE .COMPLEX Qty: 90 1RF Dose Instruction: TAKE 1 TABLET BY MOUTH EVERY DAY Rx Instructions: TAKE 1 TABLET BY MOUTH EVERY DAY Jardiance 25 mg tablet See Rx Instructions .ROUTE .COMPLEX Qty: 90 1RF Dose Instruction: TAKE 1 TABLET BY MOUTH EVERY DAY Rx Instructions: TAKE 1 TABLET BY MOUTH EVERY DAY atorvastatin 40 mg tablet See Rx Instructions .ROUTE .COMPLEX Qty: 90 1RF Dose Instruction: TAKE 1 TABLET BY MOUTH EVERY DAY Rx Instructions: TAKE 1 TABLET BY MOUTH EVERY DAY lisinopril 10 mg tablet See Rx Instructions .ROUTE .COMPLEX Qty: 90 1RF Dose Instruction: TAKE 1 TABLET BY MOUTH EVERY DAY Rx Instructions: TAKE 1 TABLET BY MOUTH EVERY DAY <Liliana Turcios APRN - Last Filed: 06/13/24 12:37> Follow-up/Referrals: Sienna Silver MD [Primary Care Provider] - <Liliana Turcios APRN - Last Filed: 06/13/24 12:37>
[2024-06-13 12:54] LABS: Basophils Absolute Auto 0.2 K/mm3 (0.0-0.1); Basophils Percent Auto 0.6 % (0.2-1.2); Eosinophils Absolute Auto 8.9 K/mm3 (0-0.3); Eosinophils Percent Auto 27.3 % (0-4.4); Hematocrit 53.6 % (42.0-52.0); Hemoglobin 18.6 g/dL (14.0-18.0); Immature Granulocyte Absolute 0.52 K/mm3 (0.00-0.031); Immature Granulocyte Percent A 1.6 % (0-0.5); Lymphocytes Absolute Auto 4.26 K/mm3 (0.9-3.2); Lymphocytes Percent Auto 13.1 % (18.3-44.2); Mean Corpuscular HGB Conc 34.7 g/dl (32-36); Mean Corpuscular Hemoglobin 30.1 pg (26-34); Mean Corpuscular Volume 86.9 fl (80-100); Mean Platelet Volume 8.8 fl (7.4-10.4); Monocytes Absolute Auto 1.7 K/mm3 (0.1-0.6); Monocytes Percent Auto 5.1 % (2.6-8.5); Neutrophils Absolute Auto 17.1 K/mm3 (1.3-6.7); Neutrophils Percent Auto 52.3 % (45.5-73.1); Platelet Count Result 287 k/mm3 (150-375); Red Blood Count 6.17 M/mm3 (4.6-6.20); Red Cell Distribution Width 13.6 % (11.5-14.5); White Blood Count 32.6 K/mm3 (4.5-10.0)
[2024-06-13 13:04] LABS: Partial Thromboplastin Time 22.3 Seconds (22.3-36.8); Prothrombin Time 13.5 Seconds (11.1-14.7)
[2024-06-13 13:08] LABS: CRP < 0.5 mg/dL (<1.0)
[2024-06-13 13:14] LABS: Alanine Aminotransferase 29 U/L (6-50); Alkaline Phosphatase 90 U/L (38-126); Anion Gap 11 mmol/L (4-12); Aspartate Amino Transferase 27 U/L (17-59); Bilirubin,Total 0.7 mg/dL (0.2-1.3); Blood Urea Nitrogen 16 mg/dL (9-20); Calcium 8.7 mg/dL (8.4-10.2); Carbon Dioxide 21 mmol/L (22-30); Chloride 103 mmol/L (98-107); Estimated CRCL calculation 66 ml/min; Estimated Glomerular Filt Rate > 60; Glucose 267 mg/dL (65-110); Lipase 34 U/L (23-300); Sodium 135 mmol/L (137-145)
[2024-06-13 13:23] LABS: Troponin I < 0.012 ng/mL (0.000-0.034)
[2024-06-13 13:27] LABS: Influenza A QL RT-PCR Negative (Negative); Influenza B QL RT-PCR Negative (Negative); RSV RNA, RT-PCR Negative (Negative); SARS-CoV-2 RNA PCR Negative (Negative)
[2024-06-13 13:28] LABS: Procalcitonin 0.1 ng/mL
[2024-06-13 14:13] LABS: Erythrocyte Sedimentation Rate 1 mm/hr (0-20)
[2024-06-13] MEDS: SODIUM CHLORIDE 0.9% IV 1,000 ML 999 ML IV CONT (14:13)
[2024-06-13] MEDS: ONDANSETRON INJ 4 MG/2 ML VIAL IV PUSH (14:14)
[2024-06-13] MEDS: MORPHINE SULFATE (*CRX) 4 MG/ML INJ IV PUSH (14:14)
[2024-06-13 14:21] LABS: Add Urine Microscopic? YES; Appearance Urine Cloudy (Clear); Bacteria Urine None Seen /hpf; Bilirubin Urine 2+ (Negative); Blood Urine Negative (Negative); Color Urine Dark Yellow (Yellow); Glucose Urine UA 2+ mg/dL (Negative); Hyaline Casts Urine Present /lpf; Ketones Urine Trace mg/dL (Negative); Leukocyte Esterase Ur Trace LEU/UL (Negative); Mucus Urine Present /lpf; Need Manual Microscopic Reviewed; Nitrate Urine Negative (Negative); Non Pathogenic Casts >20; Protein Urine 2+ mg/dL (Negative); RBC Urine 0-2 /hpf (0-2); Specific Grav Ur 1.032 (1.001-1.035); Squamous Epithelial Cell Urine Few /hpf (Few); WBC Urine 0-5 /hpf (0-3); pH Urine 5.5 (5.0-9.0)
--- NOTE | 2024-06-13 16:17 | PM.IMHP ---
H&P: HPI History of Present Illness Date/Time: 06/13/24 16:17 Chief Complaint: Diarrhea Narrative: 64-year-old male history of BRIAN, hypertension, atrial fibrillation, diabetes and depression with complaints of profuse diarrhea. Patient states that he was in the hospital 2 weeks ago [place] for DKA. Patient ended up having a biopsy by GI, his originally on Zosyn and then switched Flagyl. Patient states that he finished a course of Flagyl antibiotics yesterday. In the ED patient leukocytosis at 32.6, hemoglobin of 18.6, platelets were normal, UA was negative for nitrates with trace leukocyte esterase, respiratory panels negative. CT of the abdomen showed diffuse fluid throughout the large and small bowels consistent with nonspecific diarrhea. EKG showed sinus rhythm at 96. C diff test pending. [facility] Past Medical History Medical History Abnormal weight loss Actinic keratosis Anxiety Back pain CAD (coronary artery disease) Complete tear of right rotator cuff Depression Dermatitis Essential (primary) hypertension Hand pain Hyperkalemia Low back strain Normal cardiac stress test (~2008) Obstructive sleep apnea cpap Prostatitis Rotator cuff tear Skin lesion of face Surgical History Surgical History History of coronary artery stent placement 11/2017 Family History Family History Father Acute myocardial infarction, Onset Age: 74 Malignant neoplasm of prostate, Onset Age: 74 Other Carcinoma of colon Social History Social History Smoking packs per day: 0.75 Smoking cigarettes per day: 15.0 Years smoked: 10 Smoking pack-years: 7.50 Smoking status: Current every day smoker Tobacco type: cigarettes Alcohol intake: former Substance use: never Substance use type: does not use Do You Feel Safe in your Home?: Yes Lack of Transportation: No Lack of Food: Never True Current Housing: I Have Housing Concerned About Future Housing: No Difficulty Paying Gas/Electric Bills: No Difficulty Paying for Meds: No Currently Unemployed: No Education: High School Diploma/GED Difficulty w/ Childcare or Family Care: No Spiritual care concerns: No Meds Home Medications and Allergies Home Medications Medication Instructions Recorded Confirmed Type aspirin 81 mg tablet 81 mg PO DAILY 05/09/20 03/22/24 History fluorouracil 5 % topical cream 1 applic topical BID PRN Skin 05/09/20 03/22/24 History (Efudex) Irritation multivit with minerals-iron 18 1 tablet PO DAILY 05/09/20 03/22/24 History mg-folic ac 400 mcg-vit K 25 mcg tablet (Adults Multivitamin) vitamin B complex 1 cap PO DAILY 05/09/20 03/22/24 History gabapentin 300 mg capsule 600 mg PO QHS 11/10/22 03/22/24 History blood sugar diagnostic (Blood #200 ea 05/28/23 03/22/24 Rx Glucose Test strips) metformin 1,000 mg tablet See Rx Instructions .Route 08/04/23 03/22/24 Rx .COMPLEX #180 tabs triamcinolone acetonide 0.1 % 1 applic topical BID #80 grams 10/08/23 03/22/24 Rx topical cream blood-glucose meter,continuous #1 ea 10/13/23 03/22/24 Rx (Dexcom G6 Radiological Health Specialist) blood-glucose sensor (Dexcom G6 #3 ea 10/13/23 03/22/24 Rx Sensor device) blood-glucose transmitter (Dexcom #1 ea 10/13/23 03/22/24 Rx G6 Transmitter device) bupropion HCl 150 mg 24 hr tablet, 150 mg PO QAM #90 tabs 11/30/23 03/22/24 Rx extended release metoprolol succinate 50 mg See Rx Instructions .Route 12/09/23 03/22/24 Rx tablet,extended release 24 hr .COMPLEX #90 tabs empagliflozin 25 mg tablet See Rx Instructions .Route 04/17/24 Rx (Jardiance) .COMPLEX #90 tabs atorvastatin 40 mg tablet See Rx Instructions .Route 05/19/24 Rx .COMPLEX #90 tabs lisinopril 10 mg tablet See Rx Instructions .Route 05/19/24 Rx .COMPLEX #90 tabs Lactobacillus acidophilus 20 PO 06/13/24 History billion cell capsule (Florajen Acidophilus) cholestyramine (with sugar) 4 gram ea PO 06/13/24 History powder for susp in a packet insulin glargine 100 unit/mL (3 unit subcut 06/13/24 History mL) subcutaneous pen (Lantus Solostar U-100 Insulin) loperamide 2 mg capsule mg PO 06/13/24 History pantoprazole 40 mg tablet,delayed mg PO 06/13/24 History release pen needle, diabetic 32 gauge x #100 ea 06/13/24 History 1/4 (BD Ultra-Fine Micro Pen Needle) Allergies Allergy/AdvReac Type Severity Reaction Status Date / Time naproxen Allergy Intermediate RASH Verified 06/13/24 10:14 Vital Signs Vital Signs - 24 hr 06/13/24 11:17 06/13/24 13:51 06/13/24 13:55 Temperature 97.6 F Pulse Rate 84 82 Respiratory Rate 16 17 17 Blood Pressure 104/69 124/86 Pulse Oximetry 98 100 100 06/13/24 13:49 06/13/24 13:50 06/13/24 14:00 Temperature Pulse Rate Respiratory Rate Blood Pressure 124/86 Pulse Oximetry 100 100 100 06/13/24 14:01 06/13/24 14:14 06/13/24 14:15 Temperature Pulse Rate Respiratory Rate Blood Pressure 114/80 147/76 H Pulse Oximetry 99 99 99 06/13/24 14:16 06/13/24 14:36 06/13/24 15:04 Temperature Pulse Rate Respiratory Rate Blood Pressure 134/72 Pulse Oximetry 99 95 99 06/13/24 15:15 06/13/24 15:16 06/13/24 15:54 Temperature Pulse Rate Respiratory Rate Blood Pressure 121/73 Pulse Oximetry 98 98 99 06/13/24 16:00 Temperature Pulse Rate Respiratory Rate Blood Pressure Pulse Oximetry 100 H&P: Results Labs Labs: Short CBC 06/13/24 Range/Units 12:44 WBC 32.6 H (4.5-10.0) K/mm3 Hgb 18.6 H (14.0-18.0) g/dL Hct 53.6 H (42.0-52.0) % Plt Count 287 (150-375) k/mm3 BMP 06/13/24 12:44 Sodium 135 L Potassium 4.0 Chloride 103 Carbon Dioxide 21 L BUN 16 Creatinine 0.90 Glucose 267 H Calcium 8.7 Cardiac Enzymes 06/13/24 Range/Units 12:44 Troponin I < 0.012 (0.000-0.034) ng/mL Liver Function 06/13/24 Range/Units 12:44 Total Bilirubin 0.7 (0.2-1.3) mg/dL AST 27 (17-59) U/L ALT 29 (6-50) U/L Alkaline Phosphatase 90 (38-126) U/L Albumin 4.0 (3.5-5.1) g/dL Urine 06/13/24 Range/Units 14:03 Urine Color Dark yellow (Yellow) Urine Appearance Cloudy H (Clear) Urine pH 5.5 (5.0-9.0) Ur Specific [place] 1.032 (1.001-1.035) Urine Protein 2+ H (Negative) mg/dL Urine Glucose (UA) 2+ H (Negative) mg/dL Assessment and Plan Assessment and plan (1) Diarrhea: Code(s): R19.7 - Diarrhea, unspecified Status: Acute Assessment and Plan: Patient finished Flagyl yesterday C diff test pending Will hold off on antidiarrheals until test results IV fluids for hydration (2) Diabetes: Code(s): E11.9 - Type 2 diabetes mellitus without complications Status: Acute Assessment and Plan: Accu-Cheks a.c. and HS Diabetic diet Hold metformin while in hospital (3) Leukocytosis: Qualifiers: Leukocytosis type: unspecified Qualified Code(s): D72.829 - Elevated white blood cell count, unspecified Code(s): D72.829 - Elevated white blood cell count, unspecified Status: Acute Assessment and Plan: On admission WBC 32.6 UTI does not explain this leukocytosis, no abscess seen on abdomen or pelvis CT, no signs of soft tissue infection (4) UTI (urinary tract infection): Code(s): N39.0 - Urinary tract infection, site not specified Status: Acute Assessment and Plan: Possible UTI, asymptomatic will hold off on antibiotics for now Cultures and sensitivities pending (5) Essential (primary) hypertension: Code(s): I10 - Essential (primary) hypertension Status: Acute Assessment and Plan: Will hold home medications for now blood pressure 103/71
[2024-06-13] MEDS: SODIUM CHLORIDE 0.9% IV 1,000 ML 125 ML IV CONT (18:09)
--- NOTE | 2024-06-13 19:46 | PC.NURSE ---
Patient and family members have asked multiple times for the patient to be transferred due to his condition that was found at another facility and passed along to the patients family via phone. they state that they don't need the same tests ran at this hospital that he had ran at the last hospital he was at a week ago. patient was able to tolerate po sprite, crackers, and a turkey sandwhich. patient family members continue to want to speak to the physician, charge nurse, and other staff members about the possibility to transfer to another facility that can handle his condition.
== END 2024-06-13 19:45 | disposition left against medical advice (07) ==
PROVIDERS: Registered Nurse; Emergency Provider Emergency Medicine; PCP Family Medicine
DX: R19.7 Diarrhea, unspecified (principal); E86.0 Dehydration; Z20.822 Contact with and (suspected) exposure to COVID-19; I25.10 Atherosclerotic heart disease of native coronary artery without angina pectoris; I10 Essential (primary) hypertension; E11.9 Type 2 diabetes mellitus without complications; G47.33 Obstructive sleep apnea (adult) (pediatric); F17.210 Nicotine dependence, cigarettes, uncomplicated; Z95.5 Presence of coronary angioplasty implant and graft; Z79.4 Long term (current) use of insulin; Z79.899 Other long term (current) drug therapy; I49.1 Atrial premature depolarization
CPT/HCPCS: 36415; 74177; 80053; 81001; 83690; 84145; 84443; 84484; 85025; 85610; 85652; 85730; 86140; 87637; 93005; 96361; 96374; 96375; 99284; J2270; J2405; J7030; Q9967

== ENCOUNTER 2024-06-28 10:53 | Outpatient (CLI) | payer MEDICARE, SELFPAY ==
[2024-06-28 14:12] LABS: Prostate Specific Antigen 1.1 ng/mL (< OR = 4.0)
== END 2024-06-28 10:54 | disposition home or self-care (01) ==
LOC: ANHGOSHLAB 10:54
PROVIDERS: PCP Family Medicine; Visit Provider Family Medicine
DX: Z12.5 Encounter for screening for malignant neoplasm of prostate (principal)
CPT/HCPCS: 36415; 84153; G0103

== ENCOUNTER 2024-06-30 12:35 | Outpatient (CLI) | payer MEDICARE, SELFPAY ==
--- NOTE | ~2024-06-30 | XR_ITS ---
Left Shoulder Technique: AP and scapular Y views were obtained. Clinical History: Pain Findings: No fracture or dislocation is seen. Osseous alignment is anatomic. The glenohumeral and acr omioclavicular joint spaces are preserved. Soft tissues are unremarkable. Impression: Unremarkable left shoulder radiographs. Reviewed, dictated and finalized at [facility]. CTOR BUSINESS TRAVEL Impression: Unremarkable left shoulder radiographs.
== END 2024-06-30 12:36 | disposition home or self-care (01) ==
LOC: GOSHIMG 12:36
PROVIDERS: PCP Family Medicine; Visit Provider Family Medicine
DX: M25.512 Pain in left shoulder (principal)
CPT/HCPCS: 73030

== ENCOUNTER 2024-09-04 14:33 | Outpatient (CLI) | payer MEDICARE, SELFPAY ==
--- NOTE | ~2024-09-04 | MR_ITS ---
EXAMINATION: MR shoulder LT wo con DATE: 09/04/2024 15:11 INDICATION: Left shoulder pain TECHNIQUE: Magnetic resonance imaging (MRI) of the left shoulder was performed without intravenous co ntrast. Sequences included axial PD-weighted FS FSE, coronal oblique PD-weighted FS FSE, coronal obli que T2-weighted FS FSE, sagittal PD-weighted FS FSE, and sagittal T1-weighted SE. COMPARISON: None. FINDINGS: Coracoacromial arch: The acromion undersurface is curved in morphology (type II). Small subacromial spur at the acromial i nsertion of the coracoacromial ligament. Moderate acromioclavicular osteoarthritis. Rotator cuff: Mild supraspinatus and infraspinatus tendinopathy. There is an articular sided tear of the posterior supraspinatus and anterior infraspinatus tendons extending 16 mm AP along the posterior aspect of the superior facet and anterior portion of the middle facet of the greater tuberosity. There are 2 small regions were the tear appears to propagate to the articular surface measuring 3 mm AP with anterior aspect of the tear and 5 mm AP length at the posterior margin of the tear. There is some retraction o f the torn portion of the tendon with attenuation of the distal 1.3 cm the tendon. The teres minor te ndon is normal. Mild tendinopathy without tear of the subscapularis tendon. Normal rotator cuff muscl e bulk and signal. Biceps tendon, glenoid labrum and glenohumeral cartilage: Long head of the biceps tendon is normal. Small tear at the 11:00 of the 12:00 position of the superi or glenoid labrum. Small partial-thickness chondral flap tear at the anteroinferior rim of the glenoi d with minimal underlying subarticular cystlike change at the 5:00 position. There are small marginal osteophytes along the anterior inferior and inferior rim of the glenoid. Fluid: Small amount of fluid the septations the long head biceps tendon sheath consistent with mild bicipita l tenosynovitis. Physiologic amount fluid in the minimal joint space with no loose osteochondral bodi es. Small amount of fluid in the subacromial/subdeltoid bursa which could be due to mild bursitis or more likely decompression fluid from the glenohumeral joint space through the full-thickness rotator cuff tear. Bones: Normal marrow signal with no edema, fracture or abnormal marrow replacing process. Mild cystic change at the lesser and greater tuberosities. IMPRESSION: 1. Mild subscapularis, supraspinatus and infraspinatus tendinopathy with articular sided tear the pos terior supraspinatus and anterior infraspinatus tendons with small full-thickness component at the an terior and posterior margins of the tear. 2. Mild humeral osteoarthritis with small tear at the superior glenoid labrum. 3. Mild bicipital tenosynovitis. 4. Moderate acromioclavicular osteoarthritis. Reviewed, dictated and finalized at location A. NTIFIC ARTIST IMPRESSION: 1. Mild subscapularis, supraspinatus and infraspinatus tendinopathy with articu lar sided tear the posterior supraspinatus and anterior infraspinatus tendons w ith small full-thickness component at the anterior and posterior margins of the tear. 2. Mild humeral osteoarthritis with small tear at the superior glenoid labrum. 3. Mild bicipital tenosynovitis. 4. Moderate acromioclavicular osteoarthritis.
== END 2024-09-04 14:34 | disposition home or self-care (01) ==
LOC: MICIMG 14:34
PROVIDERS: PCP Family Medicine; Visit Provider Student in an Organized Health Care Education/Training Program
DX: M19.012 Primary osteoarthritis, left shoulder (principal); M75.22 Bicipital tendinitis, left shoulder
CPT/HCPCS: 73221

== ENCOUNTER 2024-09-15 12:57 | Outpatient (CLI) | payer MEDICARE, SELFPAY | END 2024-09-15 12:58 | disposition home or self-care (01) | LOC: ANHAUDIO 12:58 | PROVIDERS: PCP Family Medicine; Visit Provider Otolaryngology Otolaryngology/Facial Plastic Surgery | DX: H93.13 Tinnitus, bilateral (principal); H90.3 Sensorineural hearing loss, bilateral | CPT/HCPCS: 92557; 92567 ==

== ENCOUNTER 2025-03-09 11:34 | Outpatient (CLI) | payer MEDICARE, SELFPAY ==
--- NOTE | ~2025-03-09 | MR_ITS ---
EXAMINATION: MR brain/brain stem wo con DATE: 03/10/2025 10:21 CDT INDICATION: Foot drop. Memory issues. TECHNIQUE: Magnetic resonance imaging (MRI) of the brain and brainstem was performed without intravenous contrast. Sequences included sagittal and axial T1-weighted SE, axial diffusion-weighted FS SE, axial T2*-weighted GRE, axial T2-weighted FLAIR Propeller, and axial T2-weighted Propeller. Apparent diffusion coefficient (ADC) maps were created. COMPARISON: No prior studies for comparison. FINDINGS: The brain volume and ventricular system are within normal limits. The brain parenchymal signal intensity pattern and phipps/white matter is normal and there is no evidence of hemorrhage, space occupying masses or infarctions. The flow signal voids of the major arterial structures about the pamunkey of Calvin and within the major dural venous sinuses appear grossly unremarkable and patent. The seventh and eighth cranial nerve complexes are normal. The mid sagittal image demonstrates a normal craniovertebral junction and corpus callosum. The paranasal sinuses are grossly unremarkable. IMPRESSION: 1: Unremarkable MRI of the brain. No acute abnormality. Reviewed, dictated and finalized at location O.
== END 2025-03-09 11:35 | disposition home or self-care (01) ==
LOC: GOSHIMG 11:34
PROVIDERS: PCP Family Medicine; Visit Provider Family Medicine
DX: M21.372 Foot drop, left foot (principal); R42 Dizziness and giddiness; R41.3 Other amnesia; R53.83 Other fatigue
CPT/HCPCS: 70551

== ENCOUNTER 2025-03-27 08:28 | Outpatient (CLI) | payer MEDICARE, SELFPAY ==
--- OUTSIDE RECORDS SUMMARY | 2025-03-27 08:56 | XMS_ITS | Encounter Summary ---
Author Organization [facility] Address [address] [place] [address] Care Team Providers Care Operation Manager Name Role Phone Jovanny Silver MD Primary Care Provider [phone] Encounter Details Date Type Department Care Team (Late st Contact Info) Description 08/14/2024 Artisoft Message Enc [facility] Medical Group Call Center [address] [place] [phone] Audrey, [facility] Provider BD PEN NEEDLE MICRO U/F 32G X 6 MM Misc Social History Tobacco Use Types Packs/Day Years Used Date Smoking Tobacco: Every Day Cigarettes Smokeless Tobacco: Never Alcohol Use Standard Drinks/Week Comments Yes 0 (1 standard drink = 0.6 oz pur e alcohol) very seldom [facility] Utilities Answer Date Recorded In the past 12 months has e [employer], gas, oil, or water [employer] threatened to shut off services in your home? No 06/06/2024 Humiliation, Afraid, Rape, and Kick questionnair e Answer Date Recorded Within the last year, have y ou been afraid of your partner or ex-partner? No 06/06/2024 Within the last year, have y ou been humiliated or emotionally abused in other ways by your partner or ex-partner? No Within the last year, have y ou been kicked, hit, slapped, or otherwise physically hurt by your partner or ex-partner? No 06/06/2024 Within the last year, have y ou been raped or forced to have any kind of sexual activity by your partner or ex-partner? No 06/06/2024 Overall Financial Resource Strain (CARDIA) Answe r Date Recorded How hard is it for you to pa y for the very basics like food, housing, medical care, and heating? Not hard at all 06/06/2024 Hunger Vital Sign Answer Date Recorded Within the past 12 months, y ou worried that your food would run out before you got the money to buy more. Never true 06/06/20 24 Within the past 12 months, t he food you bought just didn't last and you didn't have money to get more. Never true 06/06/2024 PRAPARE - Transportation Answer Date Re corded In the past 12 months, has l ack of transportation kept you from medical appointments or from getting medications? No 05/19 In the past 12 months, has l ack of transportation kept you from meetings, work, or from getting things needed for daily living? No 06/06/2024 Housing Stability Vital Sign Answer Leonid e Recorded In the last 12 months, was t here a time when you were not able to pay the mortgage or rent on time? No 05/08/2023 In the last 12 months, how many places have you lived? 1 05/08/2023 In the last 12 months, was t here a time when you did not have a steady place to sleep or slept in a intermediate (including now)? No 05/08/2023 Housing Stability Vital Sign Answer Leonid e Recorded In the last 12 months, was t here a time when you were not able to pay the mortgage or rent on time? No 06/06/2024 In the past 12 months, how m any times have you moved where you were living? 0 06/06/2024 At any time in the past 12 m [facility], were you homeless or living in a intermediate (including now)? No 06/06/2024 Sex and Gender Information Value Date Recorded Sex Assigned at Not on file Legal Sex Male 6:32 PM CDT Gender Identity Not on file Sexual Orientation Not on file documented as of this encounter Functional Status * Are you deaf or do you have serious difficulty hearing Answer Date of Assessment Author Status No 06/06/2024 2:00 AM Bisi Ghosh RN Active * Are you blind or do you have serious difficulty seeing, even when wearing glasses? Answer Date of Assessment Author Status No 06/06/2024 2:00 AM Bisi Ghosh RN Active * Do you have serious difficulty walking or climbing stairs? Answer Date of Assessment Author Status No 06/06/2024 2:00 AM Bisi Ghosh RN Active * Do you have difficulty dressing or bathing? Answer Date of Assessment Author Status No 06/06/2024 2:00 AM Bisi Ghosh RN Active * Because of a physical, mental, or emotional condition, do you have difficulty doing errands alone such as visiting a doctor's office or shopping? Answer Date of Assessment Author Status No 06/06/2024 2:00 AM Bisi Ghosh RN Active documented as of this encounter Mental Status * Because of a physical, mental, or emotional condition, do you have serious difficulty concentrating, remembering, or making decisions? Answer Entry Date Author Status No 06/06/2024 2:00 AM Bisi Ghosh RN Active documented in this encounter Plan of Treatment Not on file documented as of this encounter Visit Diagnoses Not on filedocumented in this encounter Care Teams Operation Manager Relationship Specialty Start Date End Date Jovanny Silver MD [facility] [address] [address] PCP - General FAMILY PRACTICE 08/14/24 documented as of this encounter
--- OUTSIDE RECORDS SUMMARY | 2025-03-27 08:56 | XMS_ITS | Encounter Summary ---
Author Organization [facility] Healthcare Address [address] [place] [address] Care Team Providers Care Portrait Artist Name Role Phone Marissa Neely MD Primary Care Provider [phone] Sienna Silver MD Primary Care Provider + Encounter Details Date Type Department Care Team (Late st Contact Info) Description 11/22/2017 Orders Only [facility] Health Information Management [address] [place] [id number] Scanning, Provider Social History Tobacco Use Types Packs/Day Years Used Date Smoking Tobacco: Never Assessed Sex and Gender Information Value Date Recorded Sex Assigned at Not on file 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 Gender Identity Not on file Sexual Orientation Not on file documented as of this encounter Plan of Treatment Not on file documented as of this encounter Procedures Procedure Name Priority Date/Time Associated Diagnosis Comments SCAN - RADIOLOGY/IMAGING 11/22/2017 CARDIOLOGY DOCUMENT SCAN 11/22/2017 documented in this encounter Results * SCAN - RADIOLOGY/IMAGING (11/22/2017) Anatomical Region Laterality Modality Other us Provider Scanning Edited Result - Final * Cardiology Document Scan (11/22/2017) Anatomical Region Laterality Modality Other us Provider Scanning CV CARDIAC SERVICES PROCEDURES Edited Result - Final documented in this encounter Visit Diagnoses Not on filedocumented in this encounter Care Teams Portrait Artist Relationship Specialty Start Date End Date Marissa Neely MD [address] [place] [address] PCP - General Family Medicine 07/19/17 11/23/17 Sienna Silver MD [address] [place] [address] [address] [facility] [address] PCP - General Family Medicine 09/20/24 documented as of this encounter
--- OUTSIDE RECORDS SUMMARY | 2025-03-27 08:56 | XMS_ITS | Encounter Summary ---
Author Organization [facility] Address [address] [place] [address] Care Team Providers Care Bilingual Teacher Name Role Phone Jovanny Silver MD Primary Care Provider [phone] Encounter Details Date Type Department Care Team (Late st Contact Info) Description 10/19/2024 Tastebuds Message Enc [facility] Medical Group Call Center [address] [place] [phone] [facility] Provider Medication Refills Social History Tobacco Use Types Packs/Day Years Used Date Smoking Tobacco: Every Day Cigarettes Smokeless Tobacco: Never Alcohol Use Standard Drinks/Week Comments Yes 0 (1 standard drink = 0.6 oz pur e alcohol) very seldom [facility] Utilities Answer Date Recorded In the past 12 months has e [employer], gas, oil, or water [employer] threatened to shut off services in your [...] place to sleep or slept in a penitentiary (including now)? No 05/08/2023 Housing Stability Vital Sign Answer Leonid e Recorded In the last 12 months, was t here a time when you were not able to pay the mortgage or rent on time? No 06/06/2024 In the past 12 months, how m any times have you moved where you were living? 0 06/06/2024 At any time in the past 12 m [place], were you homeless or living in a penitentiary (including now)? No 06/06/2024 Sex and Gender [...] on filedocumented in this encounter Care Teams Bilingual Teacher Relationship Specialty Start Date End Date Jovanny Silver MD [address] [place] [address] DR [place] [place] [id number] PCP - General FAMILY PRACTICE 08/14/24 documented as of this encounter
--- OUTSIDE RECORDS SUMMARY | 2025-03-27 08:56 | XMS_ITS | Clinical Summary ---
Author Organization [facility] [address] Address [address] [place] [address] Care Team Providers Care Solar Panel Installer Name Role Phone Sienna Silver MD Primary Care Provider + Allergies Active Allergy Reactions Criticality Noted Date Comments Naproxen Rash Medium Medications lisinopril (PRINIVIL,ZESTR [place]) 10 mg tablet Take 10 mg by mouth daily. Active aspirin 81 mg tablet Take 81 mg by mouth daily. Active metFORMIN (GLUCOPHAGE) 1,000 mg tablet Take 1,000 mg by mouth 2 (two) times a day with meals. Active empagliflozin (JARDIANCE) 10 mg tabletIndicatio ns:type 2 diabetes mellitus Take 10 mg by mouth daily. Active glimepiride (AMARYL) 4 mg tabletIndicatio ns:type 2 diabetes mellitus Take 4 mg by mouth daily before breakfast. Active cyanocobalamin (Vitamin B-12) 500 mcg tabletIndicatio ns:Prevention of Vitamin B12 Deficiency Take 500 mcg by mouth daily. Active multivitamin capsule Take 1 capsule by mouth daily. Active FLUoxetine (PROzac) 20 mg tablet Take 20 mg by mouth daily. Active atorvastatin (LIPITOR) 20 mg tablet Take 1 tablet (20 mg total) by mouth daily. 30 tablet 5 8 Active Additional Information Patient taking differently: 40 mgoral Daily, Reported on 08/25/2018 OZEMPIC 0.25 mg or 0.5 mg(2 mg/1.5 mL) pen injector 0.5 mg once a week 06/11/201 9 Active metoprolol XL (TOPROL-XL) 50 mg 24 hr tablet Take 1 tablet (50 mg total) by mouth daily 90 tablet 3 9 Active clopidogreL (PLAVIX) 75 mg tabletIndicatio ns:History of coronary artery stent placement TAKE 1 TABLET BY MOUTH EVERY DAY 90 tablet 2 0 Active Active Problems Problem Noted Date Diagnosed Date Coronary artery disease invo lving [place] coronary artery of [place] heart without angina pectoris 02/24/2018 History of coronary artery stent placement 02/24 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 Spondylolisthesis 11/07/2010 Surgical History Surgery Date Site/Laterality Comments CARDIAC STENT PLACEMENT Medical History Medical History Date Comments Personal history of other di seases of the circulatory system History of hypertension - (A dded by TW Conv) Personal history of other en docrine, nutritional and metabolic disease History of diabetes mellitus - (Added by TW Conv) Hypertension Hyperlipidemia Family History Medical History Relation Name Comments Heart attack Father Heart disease Other 1 Reported Famil y History Of Heart Disease - (Added by TW Conv) Alcohol abuse Other 2 Alcoholism - ( Added by TW Conv) Cancer Other 3 Cancer - (Added by TW Conv) Hypertension Other 4 Hypertension - (Added by TW Conv) Relation Name Status Comments Father (Age 73) Other 1 Other 2 Other 3 Other 4 Social History Tobacco Use Types Packs/Day Years Used Date Smoking Tobacco: Former Cigarettes Q uit: 2001 Smokeless Tobacco: Never Alcohol Use Standard Drinks/Week Comments No 0 (1 standard drink = 0.6 oz pur e alcohol) Sex and Gender Information Value Date Recorded Sex Assigned at Not on file 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 Gender Identity Not on file Sexual Orientation Not on file Obstetrics History Last Filed Vital Signs Vital Sign Reading Time Taken Comments Blood Pressure 112/62 09/26/2019 3:56 PM CDT Pulse 67 09/26/2019 3:56 PM CDT Temperature - - Respiratory Rate - - Oxygen Saturation 97% 09/26/2019 3:56 PM CDT Inhaled Oxygen Concentration - - Weight 81.6 kg (180 lb) 10/23/2024 1:51 PM CDT Height 170.2 cm (5' 7) 10/23/2024 1:51 PM CDT Body Mass Index 28.19 10/23/2024 1:51 PM CDT Plan of Treatment Health Maintenance Due Date Last Done Comments Albumin Creatinine Ratio, Urine 1958 Colon Cancer Screening-Colonoscopy 1958 Depression Screening 1958 Fall Risk Assessment 1958 Foot Exam 1958 Hemoglobin A1C 1958 Hepatitis C Screening 1958 Prostate Cancer Screening-PSA 1958 TSH Level 1958 eGFR 1958 Dilated Eye Exam 1968 DTaP/Tdap/Td Vaccine (1 - Tdap) 1969 Hepatitis B Screening 1976 Pneumococcal vaccine 65+ (1 of 2 - PCV) 1977 Zoster Vaccine (1 of 2) 2008 Lipid Panel 03/02/2020 03/02/2019, 02/2018, 11/22/2017 Well Visit 65+ 2023 Covid-19 Vaccine (2 - season) 03/19/202402/2021 Influenza Vaccine (#1) 2025 05/08/2023, 2019 Abdominal Aortic Aneurysm (A AA) Screen Completed 06/05/2024, 05/07/2023, 05/28/2020 Procedures Procedure Name Priority Date/Time Associated Diagnosis Comments POCT LIPID PANEL Routine 03/02/2019 11:5 2 AM CDT Coronary artery disease involving [place] coronary artery of [place] heart without angina pectoris History of coronary artery stent placement from Last 3 Months or Most Recently Relevant to Health Maintenance Results * POCT lipid panel (03/02/2019 11:52 AM CDT) Cholesterol, POC 114 mg/dL HDL, POC 22 mg/dL Triglycerides, POC 320 mg/dL LDL Cholesterol POC 28 mg/dL Chol/HDL Ratio, POC 5.2 Non-HDL Cholesterol, POC 92 mg/dL Cholesterol Total, POC 114 mg/dL Blood specimen (specimen) 03/02/2019 11:52 AM CDT us Jovanny Toledo MD POINT OF CARE TEST ORDER NICOLAS Final Result from Last 3 Months or Most Recently Relevant to Health Maintenance Insurance [address] [place] [id number] [facility] [address] [place] [id number] [employer] MEDICARE GOLD [address] [place] [id number] Care Teams Solar Panel Installer Relationship Specialty Start Date End Date Sienna Silver MD [address] [place] [address] [place] [address] PCP - General Family Medicine 09/20/24
--- OUTSIDE RECORDS SUMMARY | 2025-03-27 08:56 | XMS_ITS | Clinical Summary ---
Author Organization [facility] Address [address] [place] [address] Care Team Providers Care Commercial Construction Estimator Name Role Phone Jovanny Silver MD Primary Care Provider [phone] Allergies Active Allergy Reactions Criticality Noted Date Comments Naproxen Rash Low 05/07/2023 Medications aspirin EC (ECOTRIN) 81 MG tablet Take 1 tablet (81 mg total) by mouth daily. Active atorvastatin (LIPITOR) 40 MG tablet Take 1 tablet (40 mg total) by mouth daily. 3 Active vitamin B-12 (CYANOCOBALAMIN) 500 MCG tablet Take 1 tablet (500 mcg total) by mouth daily. Active metoprolol succinate ER (TOPROL-XL) 50 MG 24 hr tablet Take 1 tablet (50 mg total) by mouth daily. 3 Active gabapentin (NEURONTIN) 300 MG capsule Take 1 capsule (300 mg total) by mouth nightly at bedtime. Takes 300mg orally at bedtime for neuropathy Active buPROPion XL (WELLBUTRIN XL) 150 MG 24 hr tablet Take 1 tablet (150 mg total) by mouth every morning. 3 Active JARDIANCE 25 MG tablet Take 1 tablet (25 mg total) by mouth daily. 3 Active CRANBERRY OR Take 1 each by mouth daily. Active multi vitamin/minerals (THERA-M ENHANCED) tablet Take 1 tablet by mouth daily. Active Ginkgo Biloba (GNP GINGKO BILOBA EXTRACT OR) Take 1 each by mouth daily. Active cholestyramine (QUESTRAN) 4 G packet Take 1 packet (4 g total) by mouth 2 (two) times daily with meals. 60 each 1 4 Active acidophilus (FLORAJEN) capsuleIndicatio ns:Diarrhea, unspecified type Take 1 capsule by mouth daily. 30 capsule 1 4 Active loperamide (IMODIUM) 2 MG capsule Take 1 capsule (2 mg total) by mouth 4 (four) times daily as needed for Diarrhea. 60 capsule 4 Active insulin glargine (LANTUS) 100 UNIT/ML injection (PEN) Inject 15 Units into the skin nightly at bedtime. 9 mL 2 4 Active Insulin Pen Needle (PEN NEEDLES) 31G X 6 MM MiscIndications: DKA (diabetic ketoacidosis) ([facility]) 1 Device by Does not apply route daily. 100 each 1 4 Active pantoprazole EC (PROTONIX) 40 MG tablet Take 1 tablet (40 mg total) by mouth 2 (two) times a day. 60 tablet 1 4 Active Active Problems Problem Noted Date Diagnosed Date Metabolic acidosis 06/05/2024 Diarrhea, unspecified type 06/05/2024 Prostatitis 05/07/2023 Immunizations Immunization Administration Dates Next Due Fluzone 6 Months+ Quad (0.5 mL Prefilled Syringe ) 05/08/2023 [employer] ([employer]) COVID-19 AD26 VACCINE 0.5 ML IM SUSP 09/23/2020 [employer]ogo COVID-19 (CARDENAS CAP), MRNA, LNP-S, PF, 30 MCG/0.3 ML BI-SUCROSE, IM 12/30/2021 Social History Tobacco Use Types Packs/Day Years Used Date Smoking Tobacco: Every Day Cigarettes Smokeless Tobacco: Never Tobacco Cessation:Ready to Q uit: No; Counseling Given: Yes Alcohol Use Standard Drinks/Week Comments Yes 0 (1 standard drink = 0.6 oz pur e alcohol) very seldom [facility] Utilities Answer Date Recorded In the past 12 months has e [employer], gas, oil, or water [employer] threatened to shut off services in your [...] place to sleep or slept in a assisted (including now)? No 05/08/2023 Housing Stability Vital Sign Answer Leonid e Recorded In the last 12 months, was t here a time when you were not able to pay the mortgage or rent on time? No 06/06/2024 In the past 12 months, how m any times have you moved where you were living? 0 06/06/2024 At any time in the past 12 m [facility], were you homeless or living in a assisted (including now)? No 06/06/2024 Sex and Gender Information Value Date Recorded Sex Assigned at Not on file Legal Sex Male 6:32 PM CDT Gender Identity Not on file Sexual Orientation Not on file Last Filed Vital Signs Vital Sign Reading Time Taken Comments Blood Pressure 128/71 06/09/2024 8:43 AM MANAGER SCIENCE Pulse 102 06/09/2024 8:43 AM MANAGER SCIENCE Temperature 36.6 C (97.9 F) 06/09/2024 8:43 AM MANAGER SCIENCE Respiratory Rate 19 06/09/2024 8:43 AM MANAGER SCIENCE Oxygen Saturation 98% 06/09/2024 8:43 AM MANAGER SCIENCE Inhaled Oxygen Concentration - - Weight 74.5 kg (164 lb 3.9 oz) 06/06/2024 1:51 A M MANAGER SCIENCE Height 170.2 cm (5' 7) 06/06/2024 1:49 AM MANAGER SCIENCE Body Mass Index 25.72 06/06/2024 1:49 AM MANAGER SCIENCE Plan of Treatment Health Maintenance Due Date Last Done Comments Kidney Health Evaluation 1958 Diabetes: Retinopathy Eye Exam 1976 Hepatitis C 1976 Pneumococcal Vaccine: 50+ Years (1 of 2 - PCV) 1977 Zoster Vaccines (1 of 2) 2008 RSV Immunization or 60+ Years (1 - Risk 60-74 years 1-dose series) 2018 Lipid Panel 03/02/2020 03/02/2019 Annual Medicare Wellness Visit 2023 PHQ-2 (Physician [place]) 07/19/2024 Hemoglobin A1C 09/05/2024 06/05/2024, 05/08/2023 COVID-19 Vaccine (3 - 2024-2 6 season) 2025 12/30/2021, 09/23/2020 DTaP, Tdap and Td Vaccines ( 2 - Td or Tdap) 06/23/2032 06/23/2022 Colorectal Cancer Screening Colonoscopy (10 Years) 06/08/2034 06/08/2024 AAA SCREENING Completed 06/05/2024, 05/07/2023, 05/28/2020 Meningococcal B Vaccine Aged Out No l onger eligible based on patient's age to complete this topic Meningococcal Vaccine Aged Out No josefa da eligible based on patient's age to complete this topic RSV Immunizations Under 20 Months Aged Out No longer eligible b ased on patient's age to complete this topic Medical Devices Implanted Type Area Cage Tender Device Identifier Shelf Expiration Date Model / Serial / Lot Clip Resolution 2.8mm 360 235cm 11mm Open - [id number] Implanted:Qty: 2 on 06/08/2024 by Christiano Hernández MD at [facility] Clip Implant [employer] [id number] 01/10/2027 [id number] / / [id number] Procedures Procedure Name Priority Date/Time Associated Diagnosis Comments CT ABD+PEL W CON STAT 06/05/2024 8:38 PM MANAGER SCIENCE HEMOGLOBIN, GLYCOSYLATED Routine 06/05/2024 6:52 PM MANAGER SCIENCE from Last 3 Months or Most Recently Relevant to Health Maintenance Results * CT ABD+PEL W IV CON ONLY (06/05/2024 8:38 PM MANAGER SCIENCE) Anatomical Region Laterality Modality Abdomen Computed Tomogra phy 06/05/2024 9:18 PM MANAGER SCIENCE Impressions 06/05/2024 9:38 PM MANAGER SCIENCE IMPRESSION: 1. Interval gastric enlargement with air-fluid level and without intrinsic mass. Wall thickening of the pyloric channel, luminal enhancement narrowing of the gastroduodenal junction. 2. Suspect antral gastritis and/or gastroduodenitis 3. This could possibly be due to delayed gastric emptying or gastroparesis and if symptoms persist or worsen might consider nuclear medicine gastric emptying study. 4. No bowel obstruction or appendicitis or acute inflammatory change in the large or small bowel 5. Small area of induration around the anterior superior aspect of the urinary bladder could represent cystitis. 6. Stable prostatomegaly. Referred By: Interpreted By: Diamond Cardenas DO, 06/05/2024 9:18 PM Narrative 06/05/2024 9:38 PM MANAGER SCIENCE [facility] [address] [facility], [place] [address] EXAMINATION: ABDOMEN PELVIS CT WITH CONTRAST CLINICAL INDICATION: 64-year-old male. Reason for examination: Abdominal pain, nausea and vomiting. 06/05/2024 8:08 PM, Darlene Mckinley: Pt arrives to the ER with complains of upper abd pain and vomiting x 5 days. Pt repots weakness and unable to keep PO down. Alert and oriented x4. BG 203 TECHNIQUE: CT of the abdomen and pelvis was acquired after intravenous administration of 100 cc of Isovue-370 into indwelling intravenous access in the right antecubital fossa without adverse contrast reaction reported. Images acquired from the lung bases to the femoral heads then reconstructed in sagittal and coronal projections. Dose lowering technique was used for this study which may include, but is not limited to, dose reduction techniques, automated exposure control, use of iterative reconstruction and ALARA (As low As Reasonably Achievable)/Image Gently techniques. COMPARISON: Contrast-enhanced CT abdomen and pelvis 05/07/2023. FINDINGS: Included lung bases: Clear of infiltrate or effusion. Unremarkable distal esophagus. ABDOMEN: The liver and spleen and adrenal glands and pancreas and gallbladder and kidneys are unremarkable.. Small symmetric nephrograms. No renal lithiasis or hydronephrosis or ureteric calculi. Stable 17 mm cystic structure in the anterior right upper pole cortex with CT Hounsfield units of 18.. No rim enhancement. No change since 2022. Likely a simple cyst and no follow-up imaging is recommended per ACR consensus recommendations. There is no retroperitoneal or mesenteric or inguinal lymphadenopathy. GI: Significant interval enlargement all the stomach. Normal gastric wall. Large homogeneous simple fluid density air-fluid level. No intrinsic focal mass. There is a 10 mm wall thickening of the pyloric antrum narrowing the pyloric channel with diffuse luminal enhancement narrowing the pyloric channel suggestive of antral gastritis probably associated narrowing at the gastroduodenal junction fluid in the duodenal cap may represent gastroduodenitis. No focal wall ulceration or erosions.. Cannot completely exclude associated delayed gastric emptying or gastroparesis. Given the significant interval change since 2022 might consider nuclear medicine gastric emptying study if symptoms persist or worsen. The duodenum jejunum and ileum are unremarkable. Normal terminal ileum. Normal appendix. The colon is normal in caliber and position. Scattered sigmoid diverticulosis. No segment of diverticulitis. No bowel obstruction. No free air or free fluid in the abdomen or pelvis. PELVIS: The urinary bladder is normally filled. There is mild circumferential bladder wall thickening and small area of anterior superior pericystic induration which could represent cystitis. The prostate measures 5 cm in diameter with diffuse central enhancement. Stable prostatomegaly. Vascular imaging: Mild scattered calcific atherosclerosis of the infrarenal aorta with mild narrowing of the inflow approximately 15-20%. Stable scattered calcific atherosclerosis at the ostia the celiac trunk and SMA without hemodynamically significant narrowing. There is no calcific atherosclerosis of right or left renal arteries. Bone window imaging: Stable grade 1 spondylolisthesis with bilateral spondylolysis L5-S1. Stable bridging osteophytosis throughout the lumbar spine with mild bony facet hypertrophy L3-4 L4-5 and L5-S1. Procedure Note Diamond Cardenas MD - 06/05/2024 [place] [id number] EXAMINATION: ABDOMEN PELVIS CT WITH CONTRAST CLINICAL INDICATION: 64-year-old male. Reason for examination: Abdominal pain, nausea and vomiting. 06/05/2024 8:08 PM, Darlene Mckinley: Pt arrives to the ER with complainsof upper abd pain and vomiting x 5 days. Pt repots weakness and unable tokeep PO down. Alert and oriented x4. BG 203 TECHNIQUE: CT of the abdomen and pelvis was acquired after intravenous administrationof 100 cc of Isovue-370 into indwelling intravenous access in the rightantecubital fossa without adverse contrast reaction reported. Imagesacquired from the lung bases to the femoral heads then reconstructed insagittal and coronal projections. Dose lowering technique was used for this study which may include, but isnot limited to, dose reduction techniques, automated exposure control, useof iterative reconstruction and ALARA (As low As ReasonablyAchievable)/Image Gently techniques. COMPARISON: Contrast-enhanced CT abdomen and pelvis 05/07/2023. FINDINGS: Included lung bases: Clear of infiltrate or effusion. Unremarkable distal esophagus. ABDOMEN: The liver and spleen and adrenal glands and pancreas and gallbladder andkidneys are unremarkable.. Small symmetric nephrograms. No renallithiasis or hydronephrosis or ureteric calculi. Stable 17 mm cysticstructure in the anterior right upper pole cortex with CT Hounsfield unitsof 18.. No rim enhancement. No change since 2022. Likely a simple cystand no follow-up imaging is recommended per ACR consensusrecommendations. There is no retroperitoneal or mesenteric or inguinal lymphadenopathy. GI: Significant interval enlargement all the stomach. Normal gastricwall. Large homogeneous simple fluid density air-fluid level. Nointrinsic focal mass. There is a 10 mm wall thickening of the pyloricantrum narrowing the pyloric channel with diffuse luminal enhancementnarrowing the pyloric channel suggestive of antral gastritis probablyassociated narrowing at the gastroduodenal junction fluid in the duodenalcap may represent gastroduodenitis. No focal wall ulceration orerosions.. Cannot completely exclude associated delayed gastric emptyingor gastroparesis. Given the significant interval change since 2022 mightconsider nuclear medicine gastric emptying study if symptoms persist orworsen. The duodenum jejunum and ileum are unremarkable. Normal terminalileum. Normal appendix. The colon is normal in caliber and position.Scattered sigmoid diverticulosis. No segment of diverticulitis. No bowelobstruction. No free air or free fluid in the abdomen or pelvis. PELVIS: The urinary bladder is normally filled. There is mild circumferentialbladder wall thickening and small area of anterior superior pericysticinduration which could represent cystitis. The prostate measures 5 cm indiameter with diffuse central enhancement. Stable prostatomegaly. Vascular imaging: Mild scattered calcific atherosclerosis of the infrarenal aorta with mildnarrowing of the inflow approximately 15-20%. Stable scattered calcificatherosclerosis at the ostia the celiac trunk and SMA withouthemodynamically significant narrowing. There is no calcificatherosclerosis of right or left renal arteries. Bone window imaging: Stable grade 1 spondylolisthesis with bilateral spondylolysis L5-S1.Stable bridging osteophytosis throughout the lumbar spine with mild bonyfacet hypertrophy L3-4 L4-5 and L5-S1. IMPRESSION: 1. Interval gastric enlargement with air-fluid level and withoutintrinsic mass. Wall thickening of the pyloric channel, luminalenhancement narrowing of the gastroduodenal junction. 2. Suspect antral gastritis and/or gastroduodenitis 3. This could possibly be due to delayed gastric emptying orgastroparesis and if symptoms persist or worsen might consider nuclearmedicine gastric emptying study. 4. No bowel obstruction or appendicitis or acute inflammatory change inthe large or small bowel 5. Small area of induration around the anterior superior aspect of theurinary bladder could represent cystitis. 6. Stable prostatomegaly. Referred By: Interpreted By: Diamond Cardenas DO, 06/05/2024 9:18 PM us Liss COTA CT Final Result * (ABNORMAL) HEMOGLOBIN, GLYCOSYLATED (06/05/2024 6:52 PM MANAGER SCIENCE) HGB A1C 9.7(H) <5.7 % 06/06/2024 2:45 AM MANAGER SCIENCE [facility] Comment: ADA GUIDELINES 2010 5.7 TO 6.4% INCREASED RISK OF DIABETES > OR = 6.5% CONSISTENT WITH DIABETES ESTIMATED AVG GLUCOSE 232 mg/dL 06/06/2024 2:45 AM MANAGER SCIENCE [facility] 06/05/2024 6:52 PM MANAGER SCIENCE Frieda Montoya DO LABORATORY Final Result [facility] [address] [place] [address], [place] [phone] from Last 3 Months or Most Recently Relevant to Health Maintenance Insurance [employer] Advance Directives * Full Code (Latest Code Status on File) Date Activated Date Inactivated Comments 06/05/2024 10:20 PM 06/09/2024 4:41 PM * Full Code Date Activated Date Inactivated Comments 05/07/2023 10:04 PM 05/09/2023 5:51 PM Care Teams Commercial Construction Estimator Relationship Specialty Start Date End Date Jovanny Silver MD [facility] [address] [address] PCP - General FAMILY PRACTICE 08/14/24
--- OUTSIDE RECORDS SUMMARY | 2025-03-27 08:56 | XMS_ITS | Encounter Summary ---
Author Organization [facility] Address [address] [place] [address] Care Team Providers Care Epic Application Coordinator Name Role Phone Marissa Neeyl MD Primary Care Provider [phone] Sienna Silver MD Primary Care Provider + Encounter Details Date Type Department Care Team (Late st Contact Info) Description 11/23/2017 Orders Only [facility] Health Information Management [address] [place] [id number] Scanning, Provider Social History Tobacco Use Types Packs/Day Years Used Date Smoking Tobacco: Never Assessed Sex and Gender Information Value Date Recorded Sex Assigned at Not on file 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 Gender Identity Not on file Sexual Orientation Not on file documented as of this encounter Plan of Treatment Not on file documented as of this encounter Procedures Procedure Name Priority Date/Time Associated Diagnosis Comments SCAN - LABS 11/23/2017 documented in this encounter Results * SCAN - LABS (11/23/2017) us Provider Scanning Final Result documented in this encounter Visit Diagnoses Not on filedocumented in this encounter Care Teams Epic Application Coordinator Relationship Specialty Start Date End Date Marissa Neely MD [address] [place] [address] PCP - General Family Medicine 07/19/17 11/23/17 Sienna Silver MD [address] [place] [address] DR ANNIE [address] [place] [id number] PCP - General Family Medicine 09/20/24 documented as of this encounter
--- OUTSIDE RECORDS SUMMARY | 2025-03-27 08:56 | XMS_ITS | Clinical Summary ---
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 Gender Identity Not on file Sexual Orientation Not on file Plan of Treatment Health Maintenance Due Date Last Done Comments Hepatitis C Virus (HCV) Screening 1960 TdaP Immunization 1960 Cologuard 2003 Immunochemical Fecal Occult Blood 2003 Pneumococcal Immunization (5 0+ years) (1 of 1 - PCV) 2008 Zoster Immunization (1 of 2) 2008 Colonoscopy 05/20/2023 05/20/2020 Colorectal Cancer Screening 05/20/2023 SARS-COV-2 Immunization ( - season) 2024 09/23/2020 Influenza Immunization (#1) 2025 12/0 10/2019, 08/24/2019 Respiratory Syncytial Virus (RSV) Immunization (Adult) (1 - 1-dose 75+ series) 2033 Hepatitis B Immunization Aged Out No longer eligible based on patient's age to complete this topic Human Papillomavirus (HPV) Immunization Aged Out No longer eligible b ased on patient's age to complete this topic Meningococcal Immunization (ACWY) Aged Out No longer eligible b ased on patient's age to complete this topic Rotavirus Immunization Aged Out No lo nger eligible based on patient's age to complete this topic Procedures Procedure Name Priority Date/Time Associated Diagnosis Comments COLONOSCOPY Routine 05/20/2020 from Last 3 Months or Most Recently Relevant to Health Maintenance Results * COLONOSCOPY (05/20/2020) Pantera Richardson DO PROCEDURE/MINOR SURGICAL ORDERA BLES Final Result from Last 3 Months or Most Recently Relevant to Health Maintenance Insurance [employer] Care Teams [employer] Relationship Specialty Start Date End Date Maxx Neely MD [address] [place] [address] PCP - General Family Medicine 05/29/20
--- OUTSIDE RECORDS SUMMARY | 2025-03-27 08:56 | XMS_ITS | Encounter Summary ---
Author Organization [facility] Address [address] [place] [address] Care Team Providers Care Product Development Worker Name Role Phone None, Provider Primary Care Provider Jovanny Martin MD Primary Care Provider [phone] Encounter Details Date Type Department Care Team (Late st Contact Info) Description 08/10/2024 [employer] Message [facility] Call Center [address] [place] [phone] Audrey, [facility] Provider pantoprazole EC (PROTONIX) 40 MG tablet Social History Tobacco Use Types Packs/Day Years Used Date Smoking Tobacco: Every Day Cigarettes Smokeless Tobacco: Never Alcohol Use Standard Drinks/Week Comments Yes 0 (1 standard drink = 0.6 oz pur e alcohol) very seldom [facility] Utilities Answer Date Recorded In the past 12 months has [facility] [employer], gas, oil, or water [employer] threatened to shut off services in your [...] place to sleep or slept in a correction (including now)? No 05/08/2023 Housing Stability Vital Sign Answer Leonid e Recorded In the last 12 months, was t here a time when you were not able to pay the mortgage or rent on time? No 06/06/2024 In the past 12 months, how m any times have you moved where you were living? 0 06/06/2024 At any time in the past [address] [facility], were you homeless or living in a correction (including now)? No 06/06/2024 Sex and Gender [...] on filedocumented in this encounter Care Teams Product Development Worker Relationship Specialty Start Date End Date None, Provider, PCP - General UNKNOWN PHYSICIAN SPECIALTY 05/07/23 08/13/24 Jovanny Silver MD [address] [facility] [address] [place] [address] [place] [id number] PCP - General FAMILY PRACTICE 08/14/24 documented as of this encounter
[2025-03-27 13:13] LABS: Hematocrit 45.6 % (42.0-52.0); Hemoglobin 14.5 g/dL (14.0-18.0); Immature Granulocyte Percent A 0.4 % (0-0.5); Lymphocytes Absolute Auto 3.35 K/mm3 (0.9-3.2); Mean Corpuscular HGB Conc 31.8 g/dl (32-36); Mean Corpuscular Hemoglobin 29.0 pg (26-34); Mean Corpuscular Volume 91.2 fl (80-100); Nucleated Red Blood Cells Absolute Auto 0.000 K/mm3 (0.0-0.012); Nucleated Red Blood Cells Perc 0.0 % (0.0-0.2); Platelet Count Result 289 k/mm3 (150-375); Red Blood Count 5.00 M/mm3 (4.6-6.20); White Blood Count 11.9 K/mm3 (4.5-10.0)
[2025-03-27 13:24] LABS: Alanine Aminotransferase 33 U/L (6-50); Albumin Level 4.6 g/dL (3.5-5.1); Alkaline Phosphatase 76 U/L (38-126); Anion Gap 11 mmol/L (4-12); Aspartate Amino Transferase 62 U/L (17-59); Bilirubin,Total 0.3 mg/dL (0.2-1.3); Blood Urea Nitrogen 16 mg/dL (9-20); Calcium 9.3 mg/dL (8.4-10.2); Carbon Dioxide 25 mmol/L (22-30); Chloride 105 mmol/L (98-107); Cholesterol 141 mg/dL (0-200); Estimated Glomerular Filt Rate > 60; Glucose 171 mg/dL (65-110); HDL Direct 38 mg/dL; Potassium 4.8 mmol/L (3.4-5.0); Sodium 141 mmol/L (137-145); Total Protein 7.4 g/dL (6.3-8.2); Triglycerides 250 mg/dL (<150)
[2025-03-27 13:42] LABS: MALB Creatinine Ratio 5.4 mg/g (0-30)
[2025-03-27 13:51] LABS: Ferritin 52.10 ng/mL (11.1-264)
[2025-03-27 14:23] LABS: Vitamin B12 411.0 pg/mL (239-931)
[2025-03-27 15:13] LABS: Hemoglobin A1C 8.8 % (<5.7)
== END 2025-03-27 08:29 | disposition home or self-care (01) ==
LOC: ANHGOSHLAB 08:29
PROVIDERS: PCP Family Medicine; Visit Provider Family Medicine
DX: E11.40 Type 2 diabetes mellitus with diabetic neuropathy, unspecified (principal); R53.83 Other fatigue; Z79.4 Long term (current) use of insulin
CPT/HCPCS: 36415; 80053; 80061; 82043; 82607; 82728; 83036; 85025

== ENCOUNTER 2025-05-31 14:54 | Outpatient (CLI) | payer MEDICARE, SELFPAY ==
--- NOTE | ~2025-05-31 | XR_ITS ---
XR lumbar spine min 4V Indication: Low back pain x 1 month, no inj, no surgery Comparison: None Findings: Grade 1 retrolisthesis of L3 on L4, grade 1 retrolisthesis L4 on L5, grade 1 anterolisthesis of L5 on S1 with bilateral spondylolytic defects. Severe loss of disc at L4-5 and L5-S1 Soft tissues unremarkable Impression: No acute abnormality. Reviewed, dictated and finalized at location P. L PRESS SET UP OPERATOR Impression: No acute abnormality.
== END 2025-05-31 14:55 | disposition home or self-care (01) ==
LOC: GOSHIMG 14:55
PROVIDERS: PCP Family Medicine; Visit Provider Family Medicine
DX: M54.50 Low back pain, unspecified (principal)
CPT/HCPCS: 72110

== ENCOUNTER 2025-06-12 15:33 | Outpatient (CLI) | payer MEDICARE, SELFPAY ==
--- NOTE | ~2025-06-12 | MR_ITS ---
EXAMINATION: MRI lumbosacral spine without contrast: DATE: 06/12/2025. INDICATION: 65-year-old with persistent back pain. Foot drop. Right-sided radiculopathy. TECHNIQUE: Axial, coronal and sagittal images were obtained as per protocol. COMPARISON: Lumbar spine x-ray dated 05/31/2025. FINDINGS: No acute bony lesions of lumbar vertebrae. Conus terminates at L1 level. At L1-2 level, degenerative disc disease and facet arthropathy with minimal compromise of both lateral recesses. At L2-3 level, degenerative disc disease and facet arthropathy causing mild compromise of both lateral recesses. At L3-4 level, significant degenerative disc disease with bulging annulus and minimal retrolisthesis. Degenerative disc disease with facet arthropathy is causing moderate compromise of thecal sac in the midline and significant compromise of both neuroforamina left more than the right. The AP diameter of thecal sac measures 9 mm in the midline. At L4-5 level, severe degenerative disc disease with retrolisthesis. Severe facet arthropathy is noted with hypertrophy of the ligaments. Evidence off extruded disc nucleus is noted on the right side at L4-5 level extending posterior to L5 vertebral body. This is impinging on the right L5 nerve root. At L5-S1 level, severe degenerative disc disease and minimal anterolisthesis. With bulging annulus and facet arthropathy are causing significant by foraminal stenosis. Paravertebral soft tissues are unremarkable. IMPRESSION: 1. No acute bony lesions of the lumbar vertebrae. Vertebral 2.At L4-5 level, severe degenerative disc disease with retrolisthesis. Severe facet arthropathy is noted with hypertrophy of the ligaments. Evidence off extruded disc nucleus is noted on the right side at L4-5 level extending posterior to L5 vertebral body. This is impinging on the right L5 nerve root. 3. Findings at other disc levels are described above in detail. 4. Paravertebral soft tissues are unremarkable. Reviewed, dictated and finalized at location T. [employer] IMPRESSION: 1. No acute bony lesions of the lumbar vertebrae. Vertebral 2.At L4-5 level, severe degenerative disc disease with retrolisthesis. Severe f acet arthropathy is noted with hypertrophy of the ligaments. Evidence off extru ded disc nucleus is noted on the right side at L4-5 level extending posterior t o L5 vertebral body. This is impinging on the right L5 nerve root. 3. Findings at other disc levels are described above in detail. 4. Paravertebral soft tissues are unremarkable.
== END 2025-06-12 15:34 | disposition home or self-care (01) ==
LOC: MICIMG 15:34
PROVIDERS: PCP Family Medicine; Visit Provider Family Medicine
DX: M51.369 Other intervertebral disc degeneration, lumbar region without mention of lumbar back pain or lower extremity pain (principal); M43.16 Spondylolisthesis, lumbar region; M47.896 Other spondylosis, lumbar region; M24.28 Disorder of ligament, vertebrae; M21.372 Foot drop, left foot; E11.40 Type 2 diabetes mellitus with diabetic neuropathy, unspecified; Z79.4 Long term (current) use of insulin
CPT/HCPCS: 72148

== ENCOUNTER 2025-07-16 12:54 | Outpatient (CLI) | payer MEDICARE, SELFPAY ==
--- NOTE | ~2025-07-16 | CT_ITS ---
EXAMINATION:CT lung screening DATE: 07/16/2025 13:18 INDICATION: Personal history of nicotine dependence. TECHNIQUE: Computed tomography (CT) of the chest was performed without intravenous contrast. Automated exposure control and iterative reconstruction technique were employed. The dose-length product (DLP) was 150.47 mGy-cm. COMPARISON: Chest CT 10/14/2023 FINDINGS: Calcified left lung nodules and calcified left hilar lymph nodes are consistent with old granulomatous disease. No pleural effusion. The heart size is normal. There are coronary artery calcifications. No pericardial effusion. Calcifications in the spleen are consistent with old granulomatous disease. There are bridging endplate osteophytes at multiple levels in the spine, consistent with diffuse idiopathic skeletal hyperostosis (DISH). IMPRESSION: 1. Lung-RADS category 1: Negative. Continue annual screening with noncontrast low-dose chest CT in 12 months. Reviewed, dictated and finalized at location E. [employer] ASSISTANT CERTIFIED IMPRESSION: 1. Lung-RADS category 1: Negative. Continue annual screening with noncontrast l ow-dose chest CT in 12 months.
== END 2025-07-16 12:55 | disposition home or self-care (01) ==
LOC: MICIMG 12:54
PROVIDERS: PCP Family Medicine; Visit Provider Family Medicine
DX: Z12.2 Encounter for screening for malignant neoplasm of respiratory organs (principal); Z87.891 Personal history of nicotine dependence
CPT/HCPCS: 71271